=== PATIENT | male | born 1940 | race Caucasian/White ===

== ENCOUNTER 2017-12-12 13:08 | Observation (INO) | payer OTHER ==
[2017-12-12] MEDS ORDERED: NA CHLORIDE 0.9% 250 ML ONE (14:09)
[2017-12-12] MEDS ORDERED: ACETAMINOPHEN 500 MG TAB ONE (14:09)
[2017-12-12 14:33] LABS: Absolute Lymphocytes (CBC) 1.1 K/uL (0.7-4.9); Absolute Monocytes 1.4 K/uL (0.1-1.3); Absolute Neutrophil 11.3 K/uL (1.8-8.0); Basophils % 0.2 % (0-1.3); Hematocrit 44.4 % (39.6-49.0); Lymphocytes % 7.9 % (15.3-44.8); MCH 31.2 pg (27.0-35.0); MCV 93.3 fL (80-100); MPV 10.4 fL (7.6-11.3); Monocytes % 10.1 % (3.3-12.3); RBC Red Blood Cell Count 4.76 M/uL (4.33-5.43)
[2017-12-12 15:04] LABS: Albumin 2.9 g/dL (3.4-5.0); Bilirubin Direct 0.3 mg/dL (0-0.2); Bilirubin Total 1.3 mg/dL (0.2-1.0); Protein, Total 7.2 g/dL (6.4-8.2)
[2017-12-12] MEDS ORDERED: NA CHLORIDE 0.9% 1,000 ML ONE (15:31)
--- NOTE | 2017-12-12 17:05 | RAD REPORT ---
EXAM DESCRIPTION: CT - Abdomen Pelvis Wo Contrast - 12/12/2017 4:50 pm CLINICAL HISTORY: Abdominal pain. ABD PAIN COMPARISON: <Comparisons> TECHNIQUE: CT imaging of the abdomen and pelvis was performed without contrast. Solid organ, bowel a nd vascular assessment is limited due to lack of IV and oral contrast. All CT scans are performed using dose optimization technique as appropriate and may include automated exposure control or mA/KV adjustment according to patient size. FINDINGS: The lower lung perkins are clear. The liver demonstrates no focal mass or intrahepatic biliary dilatation. The spleen, adrenal glands a re normal. Mild to moderate left-sided hydronephrosis and hydroureter is present. Mild fat stranding surrounding the ureter and left renal pelvis is seen. No obstructing calculus is identified. No right -sided urinary tract stone or hydronephrosis.Several calcifications are seen in the tail of the pancr eas likely indicating mild chronic pancreatitis. No bowel obstruction, free air, free fluid or abscess. Small fat containing umbilical hernia. The antwon endix is normal. Mild fecal retention in the right side of the colon seen. Prominent lumbar degenerative changes.Mild lumbar levoscoliosis. IMPRESSION: Mild to moderate left-sided hydronephrosis and hydroureter is present without obstructin g stone identified. This may indicate recent passage of a stone or vesiculoureteral reflux. A limited non-contrast examination was performed as detailed.
[2017-12-12 17:56] LABS: Urine Blood 3+ (NEG); Urine Glucose NEGATIVE (NEG); Urine Protein 1+ (NEG); Urine Specific Gravity 1.025 (1.005-1.030); Urine pH 5.5 (5.0-7.0)
--- NOTE | 2017-12-12 17:59 | EDPHYS ---
Physician Documentation [facility] Name: Calvin Peralta Age: 77 yrs Sex: Male : 1940 Arrival Date: 12/12/2017 Time: 13:10 Bed 17 Private MD: Beka Vaughn ED Physician Venancio Meeks HPI: 12/12 13:28 This 77 yrs old Male presents to ER via Ambulatory with complaints of rh1 Constipation, Flank Pain, Pelvic Pain. 13:28 The patient presents with pelvic pain, flank pain. Onset: The symptoms/episode rh1 began/occurred 5 day(s) ago. The symptoms do not radiate. Associated signs and symptoms: Pertinent positives: constipation, fever, nausea, Pertinent negatives: chest pain, diarrhea, dysuria, palpitations, shortness of breath, testicular pain, vomiting. The symptoms are described as achy. Modifying factors: The symptoms are alleviated by nothing, the symptoms are aggravated by pressure. Severity of pain: At its worst the pain was moderate in the emergency department the pain is unchanged. The patient has not experienced similar symptoms in the past. The patient has not recently seen a physician. He has been unable to have a bowel movement for the past 5 days to 1 week. Approx. 5 days ago he began with bilateral flank pain, lower pelvic pain, and intermittent scrotal pain. The scrotal pain is described as pressure, and occurs most often with BM. He has some nausea yesterday, denies any emesis, and last night had chills. He feels the need to have a bowel movement, but is unable to go, and denies any significant pain with BM attempt. He does have some pain with sitting. Reports once approx. 2 weeks ago he was straining to have BM, and his testicles hurt and became swollen, that resolved after a couple of days, and is not ongoing at this time.. Historical: - Allergies: 13:22 PENICILLINS; aj - Home Meds: 15:20 tramadol 50 mg Oral tab 2 tabs as needed [Active]; [place] Thyroid 120 mg Oral tab em [Active]; metoprolol tartrate 25 mg Oral tab [Active]; lisinopril 20 mg Oral tab 1 tab once daily [Active]; clopidogrel 75 mg oral tab 1 tab once daily [Active]; triamterene-hydrochlorothiazid 75-50 mg Oral tab 1 tab once daily [Active]; Flomax 0.4 mg Oral cp24 [Active]; allopurinol 100 mg Oral tab 1 tab 4 times per day [Active]; - PMHx: 13:22 Hyperlipidemia; Hernia; Arthritis; Ulcers; aj - PSHx: 13:22 Heart stents; aj - Immunization history:: Adult Immunizations up to date. - Social history:: Smoking status: Patient/guardian denies using tobacco. - Ebola Screening: : Patient negative for fever greater than or equal to 101.5 degrees Fahrenheit, and additional compatible Ebola Virus Disease symptoms Patient denies exposure to infectious person Patient denies travel to an Ebola-affected area in the 21 days before illness onset No symptoms or risks identified at this time. ROS: 13:28 Constitutional: Positive for chills. rh1 13:28 Cardiovascular: Negative for chest pain, palpitations. 13:28 Respiratory: Negative for cough, shortness of breath, wheezing. 13:28 Abdomen/GI: Positive for abdominal pain, nausea, constipation, Negative for vomiting, diarrhea. 13:28 Back: Positive for flank pain, Negative for pain with movement. 13:28 : Positive for intermittent scrotal pain, Negative for urinary symptoms, small amounts, burning with urination, penile pain. 13:28 Skin: Negative for diaphoresis. 13:28 Neuro: Negative for dizziness, numbness, syncope, near syncope, tingling, weakness. Exam: 13:28 Constitutional: This is a well developed, well nourished patient who is awake, alert, rh1 and in no acute distress. Head/Face: Normocephalic, atraumatic. Neck: Trachea midline, and no cervical lymphadenopathy. Supple, full range of motion without nuchal rigidity. No Meningismus. Chest/axilla: Normal chest wall appearance and motion. Nontender with no deformity. No lesions are appreciated. Cardiovascular: Regular rate and rhythm with a normal S1 and S2. No gallops, murmurs, or rubs. No JVD. No pulse deficits. Respiratory: Lungs have equal breath sounds bilaterally, clear to auscultation. No rales, rhonchi or wheezes noted. No increased work of breathing. 13:28 Back: No spinal tenderness. No costovertebral tenderness. Full range of motion. 13:28 Skin: Warm, dry with normal turgor. Normal color with no rashes, no lesions, and no evidence of cellulitis. MS/ Extremity: Pulses equal, no cyanosis. Neurovascular intact. Full, normal range of motion. 13:28 Abdomen/GI: Inspection: 13:28 Back: Exam negative for ecchymosis 13:28 Neuro: Orientation: is normal, to person, place \T\ time. Mentation: is normal, lucid, able to follow commands, Motor: is normal, moves all fours, strength is 5/5 in all extremities, Sensation: is normal, no obvious gross deficits, numbness, is not appreciated, tingling, is not appreciated, Gait: is steady, at a normal pace, without difficulty. 13:28 Abdomen/GI: Inspection: abdomen appears normal, bruising, is not seen, distension, is rh1 not seen, Bowel sounds: normal, in all quadrants, active, all quadrants, Palpation: soft, in all quadrants, mild abdominal tenderness, in the umbilical area, suprapubic area, right lower quadrant and left lower quadrant, rebound tenderness, is not appreciated, involuntary guarding, is not appreciated, Rectal exam: Stool: no appreciable stool with ZAIDA, hemorrhoid(s), are not appreciated, mass, is not appreciated, tenderness, that is mild, at prostate, Indicators: McBurney's point is not tender, Vieira's sign is negative, Rovsing's sign is negative, Liver: no appreciated palpable abnormalities, Hernia: noted in the epigastric area, paraumbilical area and umbilical area, with umbilical hernia, non - tender, no overlying skin changes; with moderate sized ventral hernia, not overly tender. 13:28 : Male external genitalia: erythema, is absent, lesion, absent, swelling, is not rh1 appreciated, tenderness, is not appreciated, non - tender bilaterally, Rectal exam: Rectal tone: normal, Stool: minimal appreciable stool on exam, Prostate: mildly tender, firm, not boggy, hemorrhoid(s), are not appreciated, mass, is not appreciated. Vital Signs: 13:22 BP 138 / 77; Pulse 102; Resp 20; Temp 100.6; Pulse Ox 96% on R/A; Weight 115.67 kg; aj Height 5 ft. 11 in. (180.34 cm); 14:46 BP 101 / 59; Pulse 88; Resp 18; Pulse Ox 96% on R/A; Pain 0/10; em 15:25 BP 112 / 65; Pulse 86; Resp 16; Temp 100.2(O); Pulse Ox 97% on R/A; em 16:49 BP 101 / 54; Pulse 79; Resp 15; Pulse Ox 96% on R/A; em 17:00 Temp 98.5(O); dh3 18:13 BP 110 / 70; Pulse 79; Resp 18; Pulse Ox 96% on R/A; Pain 0/10; em 19:32 BP 113 / 64; Pulse 79; Resp 16; Temp 98.8; Pulse Ox 94% on R/A; ao 13:22 Body Mass Index 35.56 (115.67 kg, 180.34 cm) aj MDM: 13:28 Patient medically screened. rh1 17:53 Data reviewed: vital signs, nurses notes, lab test result(s), EKG, radiologic studies, rh1 CT scan, I have discussed the patient's presentation/case with the attending Emergency Department Physician; and as a result, I will admit patient. Data interpreted: Pulse oximetry: on room air is 96 %. Interpretation: normal. Counseling: I had a detailed discussion with the patient and/or guardian regarding: the historical points, exam findings, and any diagnostic results supporting the discharge/admit diagnosis, lab results, radiology results, the need for further work-up and treatment in the hospital. Physician consultation: Jeffrey Villegas DO was called at 17:53, was contacted at 17:53, regarding admission, consult, patient's condition, in the emergency department to see patient at 17:53. 12/12 14:01 Order name: Amylase, Serum; Complete Time: 15:10 12/12 14:01 Order name: Basic Metabolic Panel; Complete Time: 15:10 12/12 14:01 Order name: CBC with Diff; Complete Time: 14:38 12/12 14:01 Order name: Creatinine for Radiology; Complete Time: 14:53 12/12 14:01 Order name: Hepatic Function; Complete Time: 15:10 12/12 14:01 Order name: Lipase; Complete Time: 15:10 12/12 14:01 Order name: Urine Microscopic Only; Complete Time: 18:04 12/12 17:36 Order name: Lactate [facility] 12/12 17:36 Order name: Procalcitonin [facility] 12/12 17:36 Order name: Psa Screen [facility] 12/12 17:53 Order name: Urine Dipstick--Ancillary (enter results); Complete Time: 18:00 12/12 18:02 Order name: Urine Culture [facility] 12/12 14:01 Order name: IV Saline Lock; Complete Time: 14:35 [facility] 12/12 14:01 Order name: Labs collected and sent; Complete Time: 14:35 [facility] 12/12 14:01 Order name: Urine Dipstick-Ancillary (obtain specimen); Complete Time: 18:29 [facility] 12/12 14:01 Order name: NPO; Complete Time: 14:35 [facility] 12/12 14:02 Order name: EKG - Nurse/Tech; Complete Time: 14:44 [facility] 12/12 14:55 Order name: CT Abd/Pelvis - Without Cont; Complete Time: 17:12 [facility] 12/12 19:52 Order name: [facility] Administered Medications: 14:35 Drug: Tylenol 1000 mg Route: PO; em 18:29 Follow up: Response: No adverse reaction; Temperature is decreased em 14:35 Drug: NS 0.9% 250 ml Route: IV; Rate: bolus; Site: left antecubital; em 16:57 Follow up: IV Status: Completed infusion; IV Intake: 250ml em 15:33 Drug: NS 0.9% 1000 ml Route: IV; Rate: 75 ml/hr; Site: left antecubital; em 19:55 Follow up: IV Status: Infusion continued upon admission ao Disposition: 18:04 Chart complete. [facility] 18:39 Co-signature as Attending Physician, Venancio Meeks MD I agree with the assessment and kdr plan of care. Disposition: 12/12/17 17:58 Hospitalization ordered by Jeffrey Villegas for Observation. Preliminary diagnosis are hydronephrosis hydroureter, acute renal failure. - Bed requested for Telemetry/MedSurg (observation). - Status is Observation. ao - Condition is Stable. - Problem is new. - Symptoms have improved. UTI on Admission? Yes Signatures: Dispatcher [employer] EDSC Kim Marie RN RN aj Rittger, Kevin, MD MD kdr Munoz, Edgar, MANAGER OF TRANSPORTATION MANAGER OF TRANSPORTATION Faye Caballero, JOSE GLASSWARE MAKER rh1 Jose Valle, RN RN Margoth Brizuela Corrections: (The following items were deleted from the chart) 14:11 13:16 Stone Protocol+CT.RAD.BRZ ordered. [facility] EDMS 14:59 14:02 Abdomen Pelvis W Con+CT.RAD.BRZ ordered. [facility] EDSC 18:00 13:28 He has been unable to have a bowel movement for the past 1 week. Approx. 5 days rh1 ago he began with bilateral flank pain, pelvic pain, and intermittent scrotal pain. He has some nausea, denies any emesis, and last night had chills. He feels the need to have a bowel movement, but is unable to go. He does have some pain with sitting. Reports once approx. 2 weeks ago he was straining to have BM, and his testicles hurt and became swollen.. 1 18:03 13:28 Abdomen/GI: Inspection: abdomen appears normal, bruising, is not seen, rh1 distension, is not seen, Bowel sounds: normal, in all quadrants, active, all quadrants, Palpation: soft, in all quadrants, mild abdominal tenderness, in the umbilical area, suprapubic area, right lower quadrant and left lower quadrant, rebound tenderness, is not appreciated, involuntary guarding, is not appreciated, Rectal exam: Stool: no appreciable stool with ZAIDA, hemorrhoid(s), are not appreciated, mass, is not appreciated, tenderness, that is mild, at prostate, Indicators: McBurney's point is not tender, Vieira's sign is negative, Rovsing's sign is negative, Liver: no appreciated palpable abnormalities, Hernia: noted in the epigastric area, paraumbilical area and umbilical area, with umbilical hernia, non - tender, no overlying skin changes; with moderate sized ventral hernia, not overly tender, rh1 18:04 13:28 He has been unable to have a bowel movement for the past 1 week. Approx. 5 days rh1 ago he began with bilateral flank pain, lower pelvic pain, and intermittent scrotal pain. The scrotal pain is described as pressure, and occurs most often with BM. He has some nausea yesterday, denies any emesis, and last night had chills. He feels the need to have a bowel movement, but is unable to go, and denies any significant pain with BM attempt. He does have some pain with sitting. Reports once approx. 2 weeks ago he was straining to have BM, and his testicles hurt and became swollen, that resolved after a couple of days, and is not ongoing at this time.. rh1 18:04 17:58 Hospitalization Ordered by Jeffrey Villegas DO for Observation. Preliminary 1 diagnosis is hydronephrosis hydroureter; acute renal failure. Bed requested for Telemetry/MedSurg (observation). Status is Observation. Condition is Stable. Problem is new. Symptoms have improved. UTI on Admission? No. rh1 18:31 18:04 12/12/2017 17:58 Hospitalization Ordered by Jeffrey Villegas DO for Observation. eb Preliminary diagnosis is hydronephrosis hydroureter; acute renal failure. Bed requested for Telemetry/MedSurg (observation). Status is Observation. Condition is Stable. Problem is new. Symptoms have improved. UTI on Admission? Yes. 1 19:57 18:31 12/12/2017 17:58 Hospitalization Ordered by Jeffrey Villegas DO for Observation. ao Preliminary diagnosis is hydronephrosis hydroureter; acute renal failure. Bed requested for Telemetry/MedSurg (observation). Status is Observation. Condition is Stable. Problem is new. Symptoms have improved. UTI on Admission? Yes. eb
--- NOTE | 2017-12-12 17:59 | ER ---
Nurse's Notes [facility] Name: Calvin Peralta Age: 77 yrs Sex: Male : 1940 Arrival Date: 12/12/2017 Time: 13:10 Bed 17 Private MD: Beka Vaughn Diagnosis: hydronephrosis hydroureter;acute renal failure Presentation: 12/12 13:19 Presenting complaint: Patient states: Constipation, lower abdominal pain and rectal aj pain for 5 days. Reports pain in scrotum with straining for BM. Report trying multiple OTC laxatives. Transition of care: patient was not received from another setting of care. Onset of symptoms was December 07, 2017. Risk Assessment: Do you want to hurt yourself or someone else? Patient reports no desire to harm self or others. Initial Sepsis Screen: Does the patient meet any 2 criteria? Temp <36.0*C (96.8*F)) or > 38.3*C (100.4*F). HR > 90 bpm. Yes Does the patient have a suspected source of infection? No. Patient's initial sepsis screen is negative. Care prior to arrival: None. 13:19 Method Of Arrival: Ambulatory aj 13:19 Acuity: HOLGER 3 aj Triage Assessment: 13:22 General: Appears in no apparent distress. comfortable, Behavior is calm, cooperative, aj appropriate for age. Pain: Complains of pain in abdomen. Neuro: Level of Consciousness is awake, alert, obeys commands, Oriented to person, place, time, situation, Appropriate for age. GI: Abdomen is round Reports lower abdominal pain, upper abdominal pain, constipation. Derm: Skin is intact, is healthy with good turgor, Skin is pink, warm \T\ dry. normal. Historical: - Allergies: 13:22 PENICILLINS; aj - Home Meds: 15:20 tramadol 50 mg Oral tab 2 tabs as needed [Active]; [place] Thyroid 120 mg Oral tab em [Active]; metoprolol tartrate 25 mg Oral tab [Active]; lisinopril 20 mg Oral tab 1 tab once daily [Active]; clopidogrel 75 mg oral tab 1 tab once daily [Active]; triamterene-hydrochlorothiazid 75-50 mg Oral tab 1 tab once daily [Active]; Flomax 0.4 mg Oral cp24 [Active]; allopurinol 100 mg Oral tab 1 tab 4 times per day [Active]; - PMHx: 13:22 Hyperlipidemia; Hernia; Arthritis; Ulcers; aj - PSHx: 13:22 Heart stents; aj - Immunization history:: Adult Immunizations up to date. - Social history:: Smoking status: Patient/guardian denies using tobacco. - Ebola Screening: : Patient negative for fever greater than or equal to 101.5 degrees Fahrenheit, and additional compatible Ebola Virus Disease symptoms Patient denies exposure to infectious person Patient denies travel to an Ebola-affected area in the 21 days before illness onset No symptoms or risks identified at this time. Screenin:45 Abuse screen: Denies threats or abuse. Nutritional screening: No deficits noted. em Tuberculosis screening: No symptoms or risk factors identified. Fall Risk None identified. Assessment: 13:40 General: Appears in no apparent distress. comfortable, Behavior is calm, cooperative. em Pain: Denies pain. Neuro: Level of Consciousness is awake, alert, obeys commands, Oriented to person, place, time, situation. Cardiovascular: Capillary refill < 3 seconds Patient's skin is warm and dry. Respiratory: Airway is patent Respiratory effort is even, unlabored, Respiratory pattern is regular, symmetrical. GI: Abdomen is round obese, Bowel sounds present X 4 quads. Abd is soft X 4 quads Abdomen is tender to palpation in left upper quadrant and left lower quadrant Reports constipation, since . : No signs and/or symptoms were reported regarding the genitourinary system. EENT: No signs and/or symptoms were reported regarding the EENT system. Derm: Skin is intact, Skin is pink, warm \T\ dry. Musculoskeletal: Range of motion: intact in all extremities. 14:42 Reassessment: Patient appears in no apparent distress at this time. Patient and/or em family updated on plan of care and expected duration. Pain level reassessed. Patient is alert, oriented x 3, equal unlabored respirations, skin warm/dry/pink. Patient denies pain at this time. 15:43 Reassessment: Patient appears in no apparent distress at this time. Patient and/or em family updated on plan of care and expected duration. Pain level reassessed. Patient is alert, oriented x 3, equal unlabored respirations, skin warm/dry/pink. family at bedside Patient denies pain at this time. 16:00 Reassessment: Patient appears in no apparent distress at this time. I agree with above iw assessment by Rich Barbosa LVN. 16:35 Reassessment: Patient appears in no apparent distress at this time. Patient and/or em family updated on plan of care and expected duration. Pain level reassessed. Patient is alert, oriented x 3, equal unlabored respirations, skin warm/dry/pink. Patient denies pain at this time. 17:45 Reassessment: Patient appears in no apparent distress at this time. Patient and/or em family updated on plan of care and expected duration. Pain level reassessed. Patient is alert, oriented x 3, equal unlabored respirations, skin warm/dry/pink. Dr. Villegas at bedside discussing POC. 19:20 Reassessment: Ultrasound at bedside. ao Vital Signs: 13:22 BP 138 / 77; Pulse 102; Resp 20; Temp 100.6; Pulse Ox 96% on R/A; Weight 115.67 kg; aj Height 5 ft. 11 in. (180.34 cm); 14:46 BP 101 / 59; Pulse 88; Resp 18; Pulse Ox 96% on R/A; Pain 0/10; em 15:25 BP 112 / 65; Pulse 86; Resp 16; Temp 100.2(O); Pulse Ox 97% on R/A; em 16:49 BP 101 / 54; Pulse 79; Resp 15; Pulse Ox 96% on R/A; em 17:00 Temp 98.5(O); dh3 18:13 BP 110 / 70; Pulse 79; Resp 18; Pulse Ox 96% on R/A; Pain 0/10; em 19:32 BP 113 / 64; Pulse 79; Resp 16; Temp 98.8; Pulse Ox 94% on R/A; ao 13:22 Body Mass Index 35.56 (115.67 kg, 180.34 cm) aj ED Course: 13:10 Patient arrived in ED. as 13:10 Beka Vaughn is Private Physician. as 13:21 Triage completed. aj 13:22 Arm band placed on left wrist. Patient placed in an exam room. aj 13:25 [facility] rh1 13:25 Venancio Meeks MD is Attending Physician. rh1 13:31 Rich Barbosa LVN is Primary Nurse. em 14:27 Radiology exam delayed due to lab results not completed at this time. (BUN/Creatinine) kw1 IV insertion attempt and/or patient not having appropriate IV at this time. 14:45 Patient has correct armband on for positive identification. Placed in gown. Bed in low em position. Call light in reach. Adult w/ patient. 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 Initial lab(s) drawn, by me, sent to lab. em Inserted saline lock: 20 gauge in left antecubital area, using aseptic technique. Blood collected. 14:55 Radiology exam delayed due to lab results not completed at this time. (BUN/Creatinine). kw1 15:06 CT completed. Patient moved to CT. Patient moved back from CT. cw1 15:07 CT Abd/Pelvis - Without Cont In Process Unspecified. EDMS 17:56 Jeffrey Villegas DO is Hospitalizing Provider. 1 18:06 add on labs drawn by me and sent to lab. 3 19:56 Patient admitted, IV remains in place. ao Administered Medications: 14:35 Drug: Tylenol 1000 mg Route: PO; em 18:29 Follow up: Response: No adverse reaction; Temperature is decreased em 14:35 Drug: NS 0.9% 250 ml Route: IV; Rate: bolus; Site: left antecubital; em 16:57 Follow up: IV Status: Completed infusion; IV Intake: 250ml em 15:33 Drug: NS 0.9% 1000 ml Route: IV; Rate: 75 ml/hr; Site: left antecubital; em 19:55 Follow up: IV Status: Infusion continued upon admission ao Intake: 16:57 IV: 250ml; Total: 250ml. em Outcome: 17:58 Decision to Hospitalize by Provider. rh1 19:55 Admitted to Tele accompanied by tech, room 416, with chart, Other ALLISON Johnson Report ao called to ALLISON Johnson 19:55 Condition: stable 19:55 Instructed on the need for admit. 19:57 Patient left the ED. ao Signatures: Dispatcher [employer] Kim Deras RN RN aj Munoz, Edgar, [employer] DELIVERY AIDE em Hattie Servin as Natalie Sheth RN RN iw Woodley, Crystal 1 Faye Lawson, DIETITIAN CONSULTANT DIETITIAN CONSULTANT 1 Jose Valle, RN RN Nay Bruno 3 Romelia Medina kw1 Corrections: (The following items were deleted from the chart) 15:42 13:40 GI: Abdomen is round obese, Bowel sounds present X 4 quads. Abd is soft X 4 quads em Abdomen is tender to palpation in left upper quadrant and left lower quadrant em
[2017-12-12 18:01] LABS: Urine Bacteria 20-50 /HPF (NONE SEEN); Urine Culture Reflex Order REFLEXED; Urine Mucus 2+ /HPF (NONE SEEN); Urine RBC 20-50 /HPF (NONE SEEN)
[2017-12-12] MEDS ORDERED: ACETAMINOPHEN 500 MG TAB PO PRN (18:08)
[2017-12-12] MEDS ORDERED: ONDANSETRON 4 MG/2 ML VIAL IV PRN (18:08)
[2017-12-12] MEDS ORDERED: TRAMADOL HCL 50 MG TAB PO PRN (18:08)
[2017-12-12] MEDS ORDERED: HYDROCODONE/APAP 7.5/325 MG TAB PO PRN (18:08)
--- NOTE | 2017-12-12 18:21 | P.HP ---
Certification for Inpatient Patient admitted to: Inpatient With expected LOS: >2 Midnights Patient will require the following post-hospital care: None Practitioner: I am a practitioner with admitting privileges, knowledge of patient current condition, hospital course, and medical plan of care. Services: Services provided to patient in accordance with Admission requirements found in Title 42 Section 412.3 of the Code of Federal Regulations Patient History Date of Service: 12/12/17 Primary Care Provider: Dr. Vaughn; Cardiology-Dr. Thurman Reason for admission: Flank pain, constipation History of Present Illness: 77-year-old male presented emergency room with increasing flank pain to the left side, constipation and poor urinary output. Patient reports last month he start to have some incontinence. He was placed on Flomax at that time. Over the past 5 days he has been constipated. Over the last several days he has been noticing some left flank pain. He admits taking multiple medications for constipation including Ducolax, Senokot and fleets enema. Today he had a mild headache. Some fevers were noted. He reports some nocturnal incontinence. He came to the ER for further evaluation. Patient with history of hypertension, CAD, BPH, hyperlipidemia. In the ER he was evaluated. Initial blood pressure stable. White count elevated at 13.9, BUN of 31, creatinine 2.2 with a GFR 29. Urine showed positive for hematuria and UTI. CT scan of the abdomen and pelvis showed no calculus to either side of the urinary system. Hydronephrosis was noted to the left side. No obstruction to the abdomen or abscess noted. No free air noted. Due to the nature of the findings, patient was admitted for further evaluation and treatment. When I saw the patient ER, he appeared comfortable. He did not appear in any distress. Patient reports poor urinary output. He does not drink or smoke. Home medications list reviewed: Yes - Past Medical/Surgical History Diabetic: No -: CAD -: Hypertension -: Hyperlipidemia -: BPH -: Obesity -: Left knee surgery Psychosocial/ Personal History: Patient is a . He has 3 kids. - Family History Father -: Heart disease, Hypertension, Cancer (Lymphoma) Mother -: Lung disease - Social History Smoking Status: Never smoker Alcohol use: No CD- Drugs: No Caffeine use: Yes Place of Residence: Home Review of Systems General: Fever, Weakness, As per HPI Eyes: Unremarkable ENT: Unremarkable Respiratory: Unremarkable Cardiovascular: Light Headedness, As per HPI Gastrointestinal: Nausea, Constipation, As per HPI Genitourinary: Frequency, Urgency, Incontinence, As per HPI Musculoskeletal: Unremarkable Integumentary: Unremarkable Neurological: Unremarkable Lymphatics: Unremarkable Physical Examination - Physical Exam General: Alert, In no apparent distress, Oriented x3, Cooperative HEENT: Atraumatic, Normocephalic, PERRLA, Other (Dry mucous membranes) Neck: Supple Respiratory: Clear to auscultation bilaterally, Normal air movement Cardiovascular: Normal pulses, Regular rate/rhythm Gastrointestinal: Hypoactive (Throughout), Soft and benign, Non-distended, No masses, No rebound, No guarding, Other (Patient morbidly obese.), Tenderness ( Left flank tenderness) Musculoskeletal: No erythema, No tenderness, No warmth Integumentary: No tenderness/swelling, No erythema, No warmth, No cyanosis Neurological: Normal speech, Normal strength at 5/5 x4 extr, Normal tone, Normal affect - Studies Laboratory Data (last 24 hrs) 12/12/17 14:20: Creatinine 2.20 H 12/12/17 14:20: WBC 13.9 H, Hgb 14.9, Hct 44.4, Plt Count 124 L 12/12/17 14:20: Sodium 137, Potassium 4.0, BUN 31 H, Creatinine 2.20 H, Glucose 129 H, Total Bilirubin 1.3 H, AST 36, ALT 23, Alkaline Phosphatase 70, Amylase 23 L, Lipase 162 Assessment and Plan - Problems (Diagnosis) (1) Acute renal failure Current Visit: Yes Status: Acute Plan: Likely from pyelonephritis with noted hydronephrosis. Case discussed with nephrology. Will start IV antibiotic therapy. Continue IV fluids. Hydronephrosis appears that he may have passed a stone. Will monitor closely. Await urine and blood cultures. (2) Pyelonephritis Current Visit: Yes Status: Acute Plan: Patient with left-sided flank pain likely pyelonephritis. Continue as above. Rocephin started. Will obtain urine and blood cultures. (3) Hydronephrosis Current Visit: Yes Status: Acute Plan: Likely related to pyelonephritis and acute renal failure. Possible passage of stone recently. Continue as above. Qualifiers: Hydronephrosis type: other Qualified Code(s): N13.39 - Other hydronephrosis (4) Constipation Current Visit: Yes Status: Acute Plan: Recent constipation. May be related to pyelonephritis. Will consult GI to further evaluate. (5) Hypertension Current Visit: Yes Status: Chronic Plan: Will continue with medication. Will obtain home medication. Qualifiers: Hypertension type: essential hypertension Qualified Code(s): I10 - Essential (primary) hypertension (6) CAD (coronary artery disease) Current Visit: Yes Status: Chronic Plan: Will continue with aspirin. Will hold Plavix in the event that some intervention is required. (7) Obesity Current Visit: Yes Status: Chronic Plan: Will obtain BMI. (8) Hypothyroidism Current Visit: Yes Status: Chronic Plan: Will obtain medication. Will check tsh Discharge Plan: Home Plan to discharge in: Greater than 2 days - Advance Directives Does patient have a Living Will: No Does patient have a Durable POA for Healthcare: No - Code Status/Comfort Care Code Status Assessed: Yes Time Spent Managing Pts Care (In Minutes): 55
[2017-12-12] MEDS: NA CHLORIDE 0.9% 1,000 ML IV SCH (19:00)
--- NOTE | 2017-12-12 19:51 | RAD REPORT ---
EXAM DESCRIPTION: US - Renal Ultrasound-Complete - 12/12/2017 7:38 pm CLINICAL HISTORY: Pyelonephritis, ARF COMPARISON: Abdomen Pelvis Wo Contrast dated 12/12/2017 FINDINGS: Both kidneys are normal in size, shape and echotexture. The right kidney measures 11.1 x 6.1 x 5.4 cm. No hydronephrosis, focal mass or perinephric fluid. The left kidney measures 13.2 x 7.5 x 6.8 cm. Mild left hydronephrosis noted. The urinary bladder is incompletely distended without gross abnormality seen. IMPRESSION: Mild left hydronephrosis.
[2017-12-12] MEDS: ENOXAPARIN 30 MG/0.3 ML SQ SCH (22:18)
[2017-12-13] MEDS: NA CHLORIDE 0.9% 1,000 ML IV SCH ×2 (04:39→15:21)
[2017-12-13 05:16] LABS: Absolute Lymphocytes (CBC) 1.8 K/uL (0.7-4.9); Absolute Monocytes 1.1 K/uL (0.1-1.3); Absolute Neutrophil 6.6 K/uL (1.8-8.0); Basophils % 0.5 % (0-1.3); Eosinophils % 2.6 % (0-4.4); Hematocrit 40.3 % (39.6-49.0); Lymphocytes % 18.3 % (15.3-44.8); MCH 31.7 pg (27.0-35.0); MCV 93.9 fL (80-100); MPV 10.4 fL (7.6-11.3); Monocytes % 11.5 % (3.3-12.3); RBC Red Blood Cell Count 4.29 M/uL (4.33-5.43)
[2017-12-13 05:49] LABS: Potassium 4.1 mmol/L (3.5-5.1); Thyroid Stimulating Hormone 1.76 uIU/mL (0.36-3.74)
[2017-12-13] MEDS: METOPROLOL TAR 25 MG TAB PO SCH ×2 (05:57→18:00)
[2017-12-13] MEDS: PANTOPRAZOLE 40MG TABLET PO SCH (05:57)
[2017-12-13] MEDS ORDERED: HOME MED 1 EA UNK (Thyroid,Pork [Armour Thyroid] 90 MG) PO SCH (09:00)
[2017-12-13] MEDS ORDERED: CEFTRIAXONE 1 GM/NS 50 ML 1 GM/50 ML BAG IV SCH (09:00)
[2017-12-13] MEDS: ENOXAPARIN 30 MG/0.3 ML SQ SCH (09:28)
[2017-12-13] MEDS: TAMSULOSIN 0.4 MG SR CAP PO SCH (09:28)
[2017-12-13] MEDS: ALLOPURINOL 100 MG TAB PO SCH (09:28)
[2017-12-13] MEDS: CLOPIDOGREL 75 MG TABLET PO SCH (09:29)
--- NOTE | 2017-12-13 09:33 | EKG ---
Test Date: 2017-12-12 Test Time: 14:40:12 Orthotic And Prosthetic Technician: RAYA MEASUREMENT RESULTS: Intervals: Rate: 86 FL: 204 QRSD: 92 QT: 402 QTc: 481 [place]: P: 62 FL: 204 QRS: -53 T: 50 INTERPRETIVE STATEMENTS: Normal sinus rhythm Left axis deviation Inferior infarct, age undetermined Abnormal ECG No previous ECG available for comparison Electronically Signed On 12-13-17 09:32:08 CDT by Dany Reynoso
[2017-12-13] MEDS: CEFTRIAXONE/SWI 1gm 1 GM/10 ML SYR IVP SCH (10:36)
[2017-12-13] MEDS ORDERED: CEFTRIAXONE/SWI 1gm 1 GM/10 ML SYR IV SCH (11:00)
--- NOTE | 2017-12-13 13:35 | P.PN ---
Subjective Date of Service: 12/13/17 Primary Care Provider: Dr. Vaughn; Cardiology-Dr. Thurman Chief Complaint: Flank pain, constipation Subjective: Improving, Other (Patient had a bowel movement last night) Physical Examination - Vital Signs Temperature: 97.9 F Blood Pressure: 112/56 Pulse: 81 Respirations: 18 Pulse Ox (%): 97 - Physical Exam General: Alert, In no apparent distress, Oriented x3, Cooperative HEENT: Atraumatic Neck: Supple Respiratory: Clear to auscultation bilaterally, Normal air movement Cardiovascular: Normal pulses, Regular rate/rhythm Gastrointestinal: Normal bowel sounds, Soft and benign, Non-distended, No masses , No rebound, No guarding, Tenderness (Less pain to the left flank) Musculoskeletal: No erythema, No tenderness, No warmth Integumentary: No tenderness/swelling, No erythema, No warmth, No cyanosis Neurological: Normal speech, Normal strength at 5/5 x4 extr, Normal tone, Normal affect - Studies Laboratory Data (last 24 hrs) 12/12/17 14:20: Creatinine 2.20 H 12/12/17 14:20: WBC 13.9 H, Hgb 14.9, Hct 44.4, Plt Count 124 L 12/12/17 14:20: Sodium 137, Potassium 4.0, BUN 31 H, Creatinine 2.20 H, Glucose 129 H, Total Bilirubin 1.3 H, AST 36, ALT 23, Alkaline Phosphatase 70, Amylase 23 L, Lipase 162 Medications List Reviewed: Yes Assessment & Plan - Problems (Diagnosis) (1) Acute renal failure Current Visit: Yes Status: Acute Plan: Likely from pyelonephritis with noted hydronephrosis. Overall improved. Continue IV antibiotic therapy. Continue IV fluids. Renal function improved. Await blood and urine culture results. (2) Pyelonephritis Current Visit: Yes Status: Acute Plan: Patient with left-sided flank pain likely pyelonephritis. Continue as above. Rocephin started. Await urine and blood culture results. (3) Hydronephrosis Current Visit: Yes Status: Acute Plan: Likely related to pyelonephritis and acute renal failure. Possible passage of stone recently. Continue as above. Qualifiers: Hydronephrosis type: other Qualified Code(s): N13.39 - Other hydronephrosis (4) Constipation Current Visit: Yes Status: Acute Plan: Recent constipation. May be related to pyelonephritis. Overall improved. Patient did have a bowel movement yesterday. GI consulted to further address (5) Hypertension Current Visit: Yes Status: Chronic Plan: Will continue with medication. Will obtain home medication. Qualifiers: Hypertension type: essential hypertension Qualified Code(s): I10 - Essential (primary) hypertension (6) CAD (coronary artery disease) Current Visit: Yes Status: Chronic Plan: Will continue with aspirin. Will restart his Plavix (7) Obesity Current Visit: Yes Status: Chronic Plan: Will address lifestyle modification education Qualifiers: Obesity type: due to excess calories Obesity classification: adult class 2 (BMI 35 - 39.9) Serious obesity comorbidity presence: with serious comorbidity Body mass index: BMI 37.0-37.9 Qualified Code(s): E66.01 - Morbid (severe) obesity due to excess calories; Z68.37 - Body mass index (BMI) 37.0-37.9, adult (8) Hypothyroidism Current Visit: Yes Status: Chronic Plan: Will continue with home medication Qualifiers: Hypothyroidism type: unspecified Qualified Code(s): E03.9 - Hypothyroidism , unspecified Discharge Plan: Home Plan to discharge in: 48 Hours Time Spent Managing Pts Care (In Minutes): 55
--- NOTE | 2017-12-13 14:57 | CON ---
Date of Consultation: 12/12/2017 Reason For Consultation: Constipation. History Of Present Illness: The patient is a 77-year-old white male with history of hypertension, hyperlipidemia, coronary artery disease, obesity, and left knee surgery. The patient presented to hospital due to severe constipation. The patient states that he was unable to go for 5-7 days, took dulcolax and fleet enema, but still unable to go. Daughter said to go to the hospital and at the hospital, found to have pyelonephritis with elevated white count of 13, significantly abnormal urinalysis revealing bacteria, white blood cell count, blood in the urine. CT scan revealed hydronephrosis and hydroureter , but no stones seen as well. The patient denies any abdominal pain, fevers, chills, night sweats, nausea, vomiting, change in weight. Last colonoscopy was approximately 10 years ago, which was negative by his verbal report at [place]. No prior EGD. Past Medical History: Significant for hypertension, hyperlipidemia, coronary artery disease, benign prostatic hypertrophy, obesity, left knee surgery. Medications: Current medications in the hospital include Tylenol, [place], Allopurinol, Rocephin, Plavix, Lovenox, metoprolol, Zofran, Flomax, [place] Thyroid 90 p.o. daily, and Ultram. Allergies: TO PENICILLIN. Social History: He is a . No tobacco or alcohol. Has 3 children. The patient states his due to complications of severe constipation as well. Family History: Father of lymphoma. 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 Mother with history of asthma and COPD, tobacco user, O2 dependent in the last few years of her life. Father was a tobacco user as well. Review of Systems: The patient has severe constipation, left back and flank pain, but denies any melena, hematochezia, hematemesis, coffee-grounds emesis, hematuria, dysuria, polydipsia, chest pain, shortness of breath, seizure, syncope, and chest pain, numbness, tingling in lower extremity, paresthesias, muscle aches, joint aches. No abdominal pain, fevers, chills, night sweats, nausea, vomiting. No depression, anxiety. Physical Examination: Vital Signs: The patient's temperature is 97.6 degrees Fahrenheit, pulse 71, respirations 19, blood pressure 103/64, O2 saturation pulse ox. He is 5 feet 11 inches, 271 pounds. BMI of 37.8 kg/m2. General: He is obese male, lying in bed, in no acute distress, pain in the left flank and left back. HEENT: Normocephalic, atraumatic. Anicteric. Pupils equal, round, and reactive to light. Extraocular movements intact. Oropharynx is clear. Neck: Supple. No masses. Respirations: Clear to auscultation bilaterally. Cardiac: Regular rate and rhythm. Gastrointestinal: Positive bowel sounds. Soft, nontender. Extremities: No clubbing, cyanosis, or edema. 2+ pulses. Neuro: Alert and oriented x3. Grossly nonfocal. 5/5 motor strength. Sensation intact to light touch. He did have some left CVA tenderness on back exam. Laboratory Data: The patient had a white count yesterday of 13.9, down to 9.9 today, hemoglobin of 13.6, hematocrit of 40.3, MCV of 94, platelet count of 112 , polys of 67%, lymphocytes 18%, monocytes 12%, eosinophils 3%. The patient has sodium of 139, potassium of 4.1, chloride 105, bicarb 28, BUN of 37, creatinine of 1.6 down from 2.2 yesterday on admission, glucose 112, lactic acid of 1.7 with calcium 8.3, magnesium 2.0, total bilirubin 1.3, direct bilirubin 0.3, AST of 36, ALT of 23, alkaline phosphatase 70, total protein 7.2 , albumin 2.9, globulin 4.3, amylase 23, lipase 160 normal. PSA 1.34. TSH of 1.76, free T4 of 0.96, normal. Urinalysis was remarkable for 3+ blood, 20-50 rbc's, trace leukocyte esterase, 20-50 white blood cells, less than 5 squamous epithelial cells, 20-50 bacteria, 3+ mucus, 1+ protein. CT abdomen and pelvis revealed [id number] left-sided hydronephrosis and hydroureter present without obstructing stone fat-stranding surrounding the ureter and left renal pelvis is seen. Left renal ultrasound revealed mild left hydronephrosis. Impression: 1. Change in bowel habits, constipation, no bowel movement for the 5-7 days, feeling better now MiraLAX therapy. The patient states he feels better and has no abdominal pain, nausea, vomiting, fevers, chills, night sweats. Last colonoscopy 10+ years ago and was negative colonoscopy as outpatient after pyelonephritis has been effectively treated. 2. Pyelonephritis and acute renal failure, creatinine up to 2.2 on admission, now down to 1.[address] scan revealing left hydronephrosis with hydroureter and left flank pain consistent with pyelonephritis. 3. Acute renal failure as per above. 4. Hypertension. 5. Coronary artery disease. 6. Obesity. 7. Hypothyroidism. Recommendations: 1. Miralax 2. Fiber supplements and Colace bid 3. IVFs and IV antibiotics 4. outpatient colonoscopy in 3-4 weeks MARLON Voice ID: [id number] Report ID: [id number] CRISTIAN
[2017-12-14] MEDS: NA CHLORIDE 0.9% 1,000 ML IV SCH ×2 (00:12→11:00)
[2017-12-14 00:47] VITALS: O2SAT 96
--- NOTE | 2017-12-14 04:07 | CON ---
Date of Consultation: 12/13/2017 Chief Complaint: Acute kidney injury. History Of Present Illness: Acute kidney injury, moderately severe, associated with hypovolemia and obstructive uropathy with hydronephrosis. On arrival to the hospital, the patient was found to have BUN of 31, creatinine of 2.20. The patient was started on IV fluids for hypovolemia. Renal function has not improved significantly over the last 24 hours. The patient denies history of chronic kidney disease. Denies history of kidney stones. A CT scan of the abdomen and pelvis per stone protocol showed [id number] left-sided hydronephrosis was present as well as hydroureter was present without obstructing stone. This may indicate recent passage of the stone of vesicoureteral reflux. Renal ultrasound demonstrated left hydronephrosis, the right kidney 11.1 cm in length, left kidney 13.2 cm in length. The patient presented to the hospital because of abdominal discomfort. He denied flank pain and denies renal colic. Over last several days, he was complaining of constipation and despite oral laxatives, he did not have a bowel movement. Constipation was not resolving and he decided to come to the hospital. He was using Dulcolax, Seonokot, and Fleets enema at home without any improvement of symptoms. He was complaining of some abdominal discomfort. He has history of diabetes mellitus, hypertension, coronary artery disease, BPH , hyperlipidemia, although he denies history of stone. Urinalysis showed possible UTI with hematuria. CT scan did not visualize kidney stone, although it showed left-sided hydronephrosis. Review of Systems: Denies fever, chills. Eyes: Denies vision changes. Ears, Nose, Mouth, and Throat: Denies sore throat, earache. Respiratory: Denies PND, orthopnea. Cardiovascular: Denies chest pain, palpitation. GI: Denies nausea, vomiting, was complaining of constipation. Denies melena, hematemesis. : Denies dysuria. Denies gross hematuria. Musculoskeletal: Denies muscle aches or joint swelling. All other systems reviewed and all are negative. Past Medical History: Hypertensive heart and kidney disease, coronary artery disease, hyperlipidemia, BPH, obesity, left knee surgery, heart disease, hypertension, cancer, and lymphoma, mother lung disease. Social History: Denies tobacco, alcohol, or illicit drugs. Physical Examination: General: The patient is awake, alert, follows commands. Eyes: Anicteric sclerae. EOMI. Ears, Nose, Mouth, and Throat: Oral mucosa moist. No pallor. Neck: Supple. No JVD. No bruits. Lungs: Clear to auscultation bilaterally. Heart: S1, S2. No pericardial friction rub. GI: Normal bowel sounds. No rebound. No guarding. Musculoskeletal: No joint swelling. No muscle tenderness. Extremities: No clubbing. No cyanosis. Neurological: Moving extremities. Cranial nerves intact. Psychiatric: Alert, oriented, follows commands, normal affect. Lab Work: Creatinine 2.2, WBC 13.1, hemoglobin 14.9, hematocrit 44.4, platelet count 124,000. Sodium 137, potassium 4.0, BUN 31, creatinine 2.2, glucose 129, total bilirubin 1.3, AST 36, ALT 23, lipase 162, amylase 23. Impression And Plan: Acute kidney injury, moderately severe, associated with hydronephrosis, prerenal azotemia. Continue IV fluids with normal saline. Monitor electrolytes closely. The patient has hydronephrosis. Workup is pending and nuclear medicine scan is ordered for hydronephrosis with Lasix. Possible kidney stone and the patient was found to have microscopic hematuria as well as proteinuria and leukocyturia. Microbiology test is pending. Urine culture is pending. Blood culture showed no growth. Continue broad-spectrum antibiotics for urinary tract infection with complicated UTI and possible urosepsis. 1. Hypertension. Avoid KYLE inhibitor due to the fact that the patient has acute kidney injury. 2. History of hyperuricemia. Continue allopurinol. Monitor uric acid level. 3. Hypotension/hypovolemia. Continue IV fluids with normal saline. Monitor magnesium and potassium level. 4. Benign prostatic hypertrophy. The patient denies lower urinary tract symptoms. The patient will continue Flomax. EB/MODL Voice ID: [id number] Report ID: [id number] MTDBull
[2017-12-14] MEDS ORDERED: FUROSEMIDE 40 MG/4 ML VIAL ONE (05:13)
[2017-12-14 05:28] LABS: Absolute Lymphocytes (CBC) 1.8 K/uL (0.7-4.9); Absolute Monocytes 0.7 K/uL (0.1-1.3); Absolute Neutrophil 3.8 K/uL (1.8-8.0); Basophils % 0.7 % (0-1.3); Eosinophils % 6.5 % (0-4.4); Hematocrit 39.5 % (39.6-49.0); Lymphocytes % 26.7 % (15.3-44.8); MCV 93.7 fL (80-100); MPV 10.6 fL (7.6-11.3); Monocytes % 9.8 % (3.3-12.3); RBC Red Blood Cell Count 4.22 M/uL (4.33-5.43)
[2017-12-14 05:39] LABS: Magnesium 1.9 mg/dL (1.8-2.4); Potassium 3.6 mmol/L (3.5-5.1)
[2017-12-14] MEDS: METOPROLOL TAR 25 MG TAB PO SCH (06:00)
[2017-12-14] MEDS ORDERED: THYROID 30 MG TAB PO SCH (06:00)
[2017-12-14] MEDS: PANTOPRAZOLE 40MG TABLET PO SCH (06:30)
[2017-12-14] MEDS ORDERED: POTASSIUM CL SA 10 MEQ TAB PO ONE (06:46)
[2017-12-14 07:20] VITALS: BMI 38.4
[2017-12-14] MEDS: CLOPIDOGREL 75 MG TABLET PO SCH (09:02)
[2017-12-14] MEDS: TAMSULOSIN 0.4 MG SR CAP PO SCH (09:02)
[2017-12-14] MEDS: ALLOPURINOL 100 MG TAB PO SCH (09:02)
[2017-12-14] MEDS: ENOXAPARIN 30 MG/0.3 ML SQ SCH (09:03)
[2017-12-14] MEDS: CEFTRIAXONE/SWI 1gm 1 GM/10 ML SYR IVP SCH (09:03)
--- NOTE | 2017-12-14 10:11 | P.PN ---
Subjective Date of Service: 12/14/17 Primary Care Provider: Dr. Vaughn; Cardiology-Dr. Thurman Chief Complaint: Flank pain, constipation Subjective: Improving Physical Examination - Vital Signs Temperature: 98.5 F Blood Pressure: 133/77 Pulse: 61 Respirations: 20 Pulse Ox (%): 98 - Physical Exam General: Alert, In no apparent distress, Oriented x3, Cooperative HEENT: Atraumatic Neck: Supple Respiratory: Clear to auscultation bilaterally, Normal air movement Cardiovascular: Normal pulses, Regular rate/rhythm Gastrointestinal: Normal bowel sounds, Soft and benign, Non-distended, No masses , No rebound, No guarding, Tenderness (Less tenderness to the left flank) Musculoskeletal: No erythema, No tenderness, No warmth Integumentary: No tenderness/swelling, No erythema, No warmth, No cyanosis Neurological: Normal speech, Normal strength at 5/5 x4 extr, Normal tone, Normal affect - Studies Medications List Reviewed: Yes Assessment & Plan - Problems (Diagnosis) (1) Acute renal failure Onset Date: 12/14/17 Current Visit: Yes Status: Acute Plan: Likely from pyelonephritis with noted hydronephrosis. This has significantly improved. Await urine culture results. Anticipate discharge today if okay with nephrology. Await urine culture results to finalize. (2) Pyelonephritis Onset Date: 12/14/17 Current Visit: Yes Status: Acute Plan: Patient with left-sided flank pain likely pyelonephritis. Continue as above. Anticipate discharge today if urine culture finalizes and if okay with nephrology. (3) Hydronephrosis Onset Date: 12/14/17 Current Visit: Yes Status: Acute Plan: Likely related to pyelonephritis and acute renal failure. Possible passage of stone recently. Continue as above. Qualifiers: Hydronephrosis type: other Qualified Code(s): N13.39 - Other hydronephrosis (4) Constipation Onset Date: 12/14/17 Current Visit: Yes Status: Acute Plan: Recent constipation. May be related to pyelonephritis. Overall improved. Patient did have a bowel movement yesterday. GI recommends MiraLax as needed (5) Hypertension Onset Date: 12/14/17 Current Visit: Yes Status: Chronic Plan: Will continue with medication. Qualifiers: Hypertension type: essential hypertension Qualified Code(s): I10 - Essential (primary) hypertension (6) CAD (coronary artery disease) Onset Date: 12/14/17 Current Visit: Yes Status: Chronic Plan: Will continue with aspirin and Plavix (7) Obesity Onset Date: 12/14/17 Current Visit: Yes Status: Chronic Plan: Will address lifestyle modification education Qualifiers: Obesity type: due to excess calories Obesity classification: adult class 2 (BMI 35 - 39.9) Serious obesity comorbidity presence: with serious comorbidity Body mass index: BMI 37.0-37.9 Qualified Code(s): E66.01 - Morbid (severe) obesity due to excess calories; Z68.37 - Body mass index (BMI) 37.0-37.9, adult (8) Hypothyroidism Onset Date: 12/14/17 Current Visit: Yes Status: Chronic Plan: Will continue with home medication Qualifiers: Hypothyroidism type: unspecified Qualified Code(s): E03.9 - Hypothyroidism , unspecified Discharge Plan: Home Plan to discharge in: 24 Hours Time Spent Managing Pts Care (In Minutes): 55
--- NOTE | 2017-12-14 10:23 | RAD REPORT ---
EXAM DESCRIPTION: NM - Kidney Imag W/Flow F W - 12/14/2017 7:58 am CLINICAL HISTORY: Left-sided hydronephrosis COMPARISON: Renal ultrasound December 12, CT abdomen December 12 TECHNIQUE: Patient was administered 10.3 millicuries technetium 99 M Mag 3. Dynamic flow imaging was performed. Lasix 40 milligrams was administered 10 minutes after radiopharmaceutical injection. Time activity curves were generated. FINDINGS: The dynamic flow imaging shows prominence of each renal pelvis with the left-sided hydrone phrosis seen on imaging less evident on this examination. Time to peak activity of the right kidney w as 9.07 minutes with the left kidney peak activity is 6.63 minutes. Split function was calculated as 46% on the left and 54% on the right. Both kidneys showed a relative delay in time to peak activity v ersus a normal kidney. Both kidneys showed progressive diminished activity after peak value. This was not significantly affected by Lasix administration. IMPRESSION: Both kidneys demonstrate a delay in time to peak activity but maintain relatively symmet hsaron split function. No significant or measurable response to the Lasix seen in the suspected obstructed left kidney. The left-sided dilatation seen on CT imaging is less apparent on the nuclear medicine imaging. Signif icant obstruction is not suspected.
[2017-12-14 12:52] VITALS: BP 127/75; TEMP 98.3
--- NOTE | 2017-12-14 14:29 | P.DS ---
Admission Date: 12/12/17 Discharge Date: 12/14/17 Primary Care Provider: Dr. Vaughn; Cardiology-Dr. Thurman Disposition: ROUTINE DISCHARGE Discharge Condition: GOOD Reason for Admission: Flank pain, constipation Consultations: Nephrology-Dr. Eisenberg GI-Dr. Valdivia Procedures: CT scan: FINDINGS: The lower lung perkins are clear. The liver demonstrates no focal mass or intrahepatic biliary dilatation. The spleen, adrenal glands are normal. Mild to moderate left-sided hydronephrosis and hydroureter is present. Mild fat stranding surrounding the ureter and left renal pelvis is seen. No obstructing calculus is identified. No right-sided urinary tract stone or hydronephrosis.Several calcifications are seen in the tail of the pancreas likely indicating mild chronic pancreatitis. No bowel obstruction, free air, free fluid or abscess. Small fat containing umbilical hernia. The appendix is normal. Mild fecal retention in the right side of the colon seen. Prominent lumbar degenerative changes.Mild lumbar levoscoliosis. IMPRESSION: Mild to moderate left-sided hydronephrosis and hydroureter is present without obstructing stone identified. This may indicate recent passage of a stone or vesiculoureteral reflux. Renal ultrasound: FINDINGS: Both kidneys are normal in size, shape and echotexture. The right kidney measures 11.1 x 6.1 x 5.4 cm. No hydronephrosis, focal mass or perinephric fluid. The left kidney measures 13.2 x 7.5 x 6.8 cm. Mild left hydronephrosis noted. The urinary bladder is incompletely distended without gross abnormality seen. IMPRESSION: Mild left hydronephrosis. Renal scan: FINDINGS: The dynamic flow imaging shows prominence of each renal pelvis with the left-sided hydronephrosis seen on imaging less evident on this examination. Time to peak activity of the right kidney was 9.07 minutes with the left kidney peak activity is 6.63 minutes. Split function was calculated as 46% on the left and 54% on the right. Both kidneys showed a relative delay in time to peak activity versus a normal kidney. Both kidneys showed progressive diminished activity after peak value. This was not significantly affected by Lasix administration. IMPRESSION: Both kidneys demonstrate a delay in time to peak activity but maintain relatively symmetric split function. No significant or measurable response to the Lasix seen in the suspected obstructed left kidney. The left-sided dilatation seen on CT imaging is less apparent on the nuclear medicine imaging. Significant obstruction is not suspected. - Problems (1) Acute renal failure Onset Date: 12/14/17 Current Visit: Yes Status: Acute (2) Pyelonephritis Onset Date: 12/14/17 Current Visit: Yes Status: Acute (3) Hydronephrosis Onset Date: 12/14/17 Current Visit: Yes Status: Acute Qualifiers: Hydronephrosis type: other Qualified Code(s): N13.39 - Other hydronephrosis (4) Constipation Onset Date: 12/14/17 Current Visit: Yes Status: Acute (5) Hypertension Onset Date: 12/14/17 Current Visit: Yes Status: Chronic Qualifiers: Hypertension type: essential hypertension Qualified Code(s): I10 - Essential (primary) hypertension (6) CAD (coronary artery disease) Onset Date: 12/14/17 Current Visit: Yes Status: Chronic Qualifiers: Coronary Disease-Associated Artery/Lesion type: unspecified vessel or lesion type (7) Obesity Onset Date: 12/14/17 Current Visit: Yes Status: Chronic Qualifiers: Obesity type: due to excess calories Obesity classification: adult class 2 (BMI 35 - 39.9) Serious obesity comorbidity presence: with serious comorbidity Body mass index: BMI 37.0-37.9 Qualified Code(s): E66.01 - Morbid (severe) obesity due to excess calories; Z68.37 - Body mass index (BMI) 37.0-37.9, adult (8) Hypothyroidism Onset Date: 12/14/17 Current Visit: Yes Status: Chronic Qualifiers: Hypothyroidism type: unspecified Qualified Code(s): E03.9 - Hypothyroidism , unspecified (9) Nephrolithiasis Current Visit: Yes Status: Acute (10) BPH (benign prostatic hyperplasia) Current Visit: Yes Status: Suspected Qualifiers: Lower urinary tract symptom presence: unspecified whether lower urinary tract symptoms present Qualified Code(s): N40.0 - Benign prostatic hyperplasia without lower urinary tract symptoms Brief History of Present Illness: 77-year-old male presented emergency room with increasing flank pain to the left side, constipation and poor urinary output. Patient reports last month he start to have some incontinence. He was placed on Flomax at that time. Over the past 5 days he has been constipated. Over the last several days he has been noticing some left flank pain. He admits taking multiple medications for constipation including Ducolax, Senokot and fleets enema. Today he had a mild headache. Some fevers were noted. He reports some nocturnal incontinence. He came to the ER for further evaluation. Patient with history of hypertension, CAD, BPH, hyperlipidemia. In the ER he was evaluated. Initial blood pressure stable. White count elevated at 13.9, BUN of 31, creatinine 2.2 with a GFR 29. Urine showed positive for hematuria and UTI. CT scan of the abdomen and pelvis showed no calculus to either side of the urinary system. Hydronephrosis was noted to the left side. No obstruction to the abdomen or abscess noted. No free air noted. Due to the nature of the findings, patient was admitted for further evaluation and treatment. When I saw the patient ER, he appeared comfortable. He did not appear in any distress. Patient reports poor urinary output. He does not drink or smoke. Hospital Course: The patient did well in the course of his stay. Patient was found to have left pyelonephritis secondary to recent passage of stone. Patient was evaluated by nephrology due to acute renal failure. Patient received IV fluids and antibiotic therapy-Rocephin during his stay. His renal function improved. Patient was without any significant abdominal pain. Urine culture was positive for Staph coagulase negative. Likely a contaminant. Repeat renal ultrasound showed hydronephrosis but no significant abnormality noted. A renal scan was done showing no obstruction. At discharge patient will continue with Ceftin 250 mg twice daily for 10 days. Recommendation is to recheck lab-BMP in 1 week to monitor his progress. Recommendation is for the patient follow up with nephrology in 1 week to monitor and follow up this hospitalization. Patient may require Urology evaluation as an outpatient. This can be further assessed by nephrology. Patient also had constipation. This was likely related to the recent infection. GI was consulted. Patient at discharge will continue with MiraLax as needed for constipation. Recommendation is for the patient follow up with GI in 2-4 weeks. Recommendation is for a colonoscopy in 4-6 weeks. Patient has hypertension. Medications were adjusted due to the acute renal failure. Lisinopril has been discontinued. Patient will continue with medication-metoprolol 25 mg daily. Recommendation is to maintain blood pressures less 150/80. Further adjustment can be done by his PCP. Patient has a history of gout. Patient continue with his medication allopurinol 400 mg daily. Further adjustment in medication can be done by nephrology. Patient has hypothyroidism. Patient will continue with Hinton thyroid 90 mg daily. Patient has CAD. Patient will continue with Plavix 75 mg daily. Patient may have BPH. Patient will continue with Flomax 0.4 mg daily. Recommendations for the patient follow up with urology as an outpatient to further evaluate. Vital Signs/Physical Exam: Temp Pulse Resp BP Pulse Ox 98.3 F 69 20 127/75 98 12/14/17 12:00 12/14/17 12:00 12/14/17 12:00 12/14/17 12:00 12/14/17 12:00 General: Alert, In no apparent distress, Oriented x3, Cooperative HEENT: Atraumatic Neck: Supple Respiratory: Clear to auscultation bilaterally, Normal air movement Cardiovascular: Normal pulses, Regular rate/rhythm Gastrointestinal: Normal bowel sounds, Soft and benign, Non-distended, No tenderness, No masses, No rebound, No guarding Musculoskeletal: No contractures, No erythema, No tenderness, No warmth Integumentary: No tenderness/swelling, No erythema, No warmth, No cyanosis Neurological: Normal speech, Normal strength at 5/5 x4 extr, Normal tone, Normal affect Laboratory Data at Discharge: WBC 6.7 K/uL (4.3-10.9) D 12/14/17 04:50 Hgb 13.5 g/dL (13.6-17.9) L 12/14/17 04:50 Hct 39.5 % (39.6-49.0) L 12/14/17 04:50 Plt Count 128 K/uL (152-406) L 12/14/17 04:50 Sodium 141 mmol/L (136-145) 12/14/17 04:50 Potassium 3.6 mmol/L (3.5-5.1) 12/14/17 04:50 BUN 30 mg/dL (7-18) H 12/14/17 04:50 Creatinine 1.30 mg/dL (0.55-1.3) 12/14/17 04:50 Glucose 104 mg/dL (74-106) 12/14/17 04:50 Magnesium 1.9 mg/dL (1.8-2.4) 12/14/17 04:50 Total Bilirubin 1.3 mg/dL (0.2-1.0) H 12/12/17 14:20 AST 36 U/L (15-37) 12/12/17 14:20 ALT 23 U/L (12-78) 12/12/17 14:20 Alkaline Phosphatase 70 U/L (45-117) 12/12/17 14:20 Amylase 23 U/L (25-115) L 12/12/17 14:20 Lipase 162 U/L (73-393) 12/12/17 14:20 Home Medications: Allopurinol 400 mg PO DAILY 12/12/17 Clopidogrel Bisulfate [Plavix*] 75 mg PO DAILY 12/12/17 Metoprolol Tartrate 25 mg PO DAILY 12/12/17 Tamsulosin HCl 0.4 mg PO DAILY 12/12/17 Thyroid,Pork [Hinton Thyroid] 90 mg PO DAILY 12/12/17 traMADol HCL [Ultram*] 50 mg PO Q6H PRN 12/12/17 Cefuroxime [Ceftin] 250 mg PO BID #20 tab 12/14/17 New Medications: Cefuroxime [Ceftin] 250 mg PO BID #20 tab Patient Discharge Instructions: 1. Patient will need to follow up his PCP in 1 week to follow up this hospitalization. 2. Patient was found to have left pyelonephritis secondary to recent passage of stone. Patient was evaluated by nephrology due to acute renal failure. Patient received IV antibiotic therapy and IV fluids. At discharge she is without any significant abdominal pain, urinary pain or fever. Urine culture was positive for Staph coagulase negative. Likely a contaminant. A renal scan was done showing no obstruction. At discharge patient will continue with Ceftin 250 mg twice daily for 10 days. Recommendation is to recheck lab-BMP in 1 week to monitor his progress. Recommendation is for the patient follow up with nephrology in 1 week to monitor and follow up this hospitalization. Patient may require Urology evaluation as an outpatient. This can be further assessed by nephrology. 3. Patient also had constipation. This was likely related to the recent infection. GI was consulted. Patient at discharge will continue with MiraLax as needed for constipation. Recommendation is for the patient follow up with GI in 2-4 weeks. Recommendation is for a colonoscopy in 4-6 weeks. 4. Patient has hypertension. Medications were adjusted due to the acute renal failure. Lisinopril and Dyazide has been discontinued. Patient will continue with medication-metoprolol 25 mg daily. Recommendation is to maintain blood pressures less 150/80. Further adjustment can be done by his PCP. If patient has increase edema then Lasix may be required. This can be further addressed by his PCP. 5. Patient has a history of gout. Patient continue with his medication allopurinol 400 mg daily. Further adjustment in medication can be done by nephrology. 6. Patient has hypothyroidism. Patient will continue with Hinton thyroid 90 mg daily. 7. Patient has CAD. Patient will continue with Plavix 75 mg daily. 8. Patient may have BPH. Patient will continue with Flomax 0.4 mg daily. Recommendations for the patient follow up with urology as an outpatient to further evaluate. Diet: GI soft Activity: Ad connie Time spent managing pt's care (in minutes): 55
--- NOTE | 2017-12-15 02:41 | PN ---
Date of Progress Note: 12/13/2017 Chief Complaint: Acute kidney injury. History Of Present Illness: Acute kidney injury, moderately severe, associated with hypovolemia and hydronephrosis. The patient was found to have left-sided hydronephrosis. Nuclear medicine Lexiscan was done and does not appear to be obstructive uropathy at this point. Creatinine level was 2.2, BUN 31. Regional ultrasound showed right kidney 11.1 and left kidney 13.2. Review of Systems: Denies fever or chills. Physical Examination: Lungs: Clear to auscultation bilaterally. Heart: S1, S2. Abdomen: Soft, benign. Extremities: No edema. Vital Signs: Blood pressure 127/75, heart rate 69, respiratory rate 20, temperature 98.3. Laboratory Data: Hemoglobin 13.5, WBC 6.7, and platelet count 128,000. Sodium 141, potassium 3.6, c hloride 107, CO2 of 28, BUN 30, creatinine 1.30, glucose 104, calcium 8.1, magnesium 1.9. Microbiolo gy test is pending. Blood culture negative. Impression And Plan: 1.Acute kidney injury, secondary to renal hypoperfusion. The patient responded to IV fluids. 2.Hydronephrosis. The patient will follow up with Urology. Nuclear scan did not confirm obstructiv e uropathy. 3.Continue antibiotics for urinary tract infection. 4.Hypertension. Blood pressure controlled. KYLE inhibitor on hold because of acute kidney injury. 5.Hypotension, hypovolemia. The patient completed IV fluids with normal saline. 6.Benign prostatic hypertrophy. Continue Flomax. Follow up with Urology and Nephrology. MALENA/IVELISSE Voice ID: [id number] Report ID: [id number]
== END 2017-12-14 16:01 | disposition home or self-care (01) ==
LOC: ER 13:08 → ERHOLD 18:12 → 4TH 19:42
PROVIDERS: ADMIT Family Medicine; ATTEND Family Medicine
DX: N17.9 Acute kidney failure, unspecified (principal); N13.6 Pyonephrosis; K59.00 Constipation, unspecified; I10 Essential (primary) hypertension; M10.9 Gout, unspecified; E03.9 Hypothyroidism, unspecified; E66.01 Morbid (severe) obesity due to excess calories; Z68.37 Body mass index [BMI] 37.0-37.9, adult; Z79.02 Long term (current) use of antithrombotics/antiplatelets; N40.0 Benign prostatic hyperplasia without lower urinary tract symptoms; E78.5 Hyperlipidemia, unspecified; I25.10 Atherosclerotic heart disease of native coronary artery without angina pectoris; Z95.5 Presence of coronary angioplasty implant and graft
CPT/HCPCS: 36415 ×2; 74176; 76770; 78708; 80048 ×3; 80076; 82150; 82962; 83605; 83690; 83735 ×2; 84145; 84439; 84443; 85025 ×3; 87040; 87077; 87086; 87088; 87186; 93005; 94660; 94760 ×2; 96360; 96361 ×2; 99285; A9562; G0103; G0378 ×2; J0696 ×2; J1650 ×3; J7030 ×4; 81003; 81015; 96365; 96366

== ENCOUNTER 2017-12-25 21:37 | Emergency (ER) | payer OTHER ==
[2017-12-25] MEDS ORDERED: FUROSEMIDE 40 MG/4 ML VIAL ONE (22:30)
[2017-12-25 22:36] LABS: Arterial Blood Carboxyhemoglob 1.4 % (0-1.5); Blood Gas Oxyhemoglobin 90.9 % (94-97); Blood O2 Saturation 92.9 % (92-98.5)
[2017-12-25 22:37] LABS: Absolute Lymphocytes (CBC) 1.7 K/uL (0.7-4.9); Absolute Monocytes 0.6 K/uL (0.1-1.3); Absolute Neutrophil 3.8 K/uL (1.8-8.0); Eosinophils % 5.3 % (0-4.4); Hematocrit 40.6 % (39.6-49.0); Lymphocytes % 26.1 % (15.3-44.8); MCH 31.4 pg (27.0-35.0); MPV 11.1 fL (7.6-11.3); Monocytes % 9.2 % (3.3-12.3); RBC Red Blood Cell Count 4.36 M/uL (4.33-5.43)
[2017-12-25 22:42] LABS: Protime INR 1.04
[2017-12-25 23:01] LABS: Albumin 2.8 g/dL (3.4-5.0); Bilirubin Direct 0.2 mg/dL (0-0.2); Bilirubin Total 0.6 mg/dL (0.2-1.0); CKMB Creatine Kinase MB 1.8 ng/mL (0.3-3.6); Magnesium 1.9 mg/dL (1.8-2.4); Potassium 3.7 mmol/L (3.5-5.1); Protein, Total 6.6 g/dL (6.4-8.2)
--- NOTE | 2017-12-25 23:18 | EDPHYS ---
Physician Documentation [facility] Name: Calvin Peralta Age: 77 yrs Sex: Male : 1940 Arrival Date: 12/25/2017 Time: 21:41 Bed 18 Private MD: ED Physician Christian Tanner HPI: 12/25 22:22 This 77 yrs old Male presents to ER via Ambulatory with complaints of pkl Swelling of Lower Extremity, Shortness Of Breath, Possible Overdose. 22:22 The patient has shortness of breath at rest. Onset: The symptoms/episode began/occurred pkl 2 day(s) ago. Associated signs and symptoms: Pertinent positives: swelling abdomen and both legs. The patient has been recently been admitted at [facility]. Historical: - Allergies: 22:03 PENICILLINS; bb 22:03 Morphine; bb - Home Meds: 22:03 allopurinol 100 mg Oral tab 1 tab 4 times per day [Active]; Berwind Thyroid 90 mg oral bb tab daily [Active]; clopidogrel 75 mg Oral tab 1 tab once daily [Active]; Flomax 0.4 mg Oral cp24 [Active]; metoprolol tartrate 25 mg Oral tab 1 tab once daily [Active]; losartan potassium 50 mg daily [Active]; aspirin 81 mg Oral chew 1 tab once daily [Active]; - PMHx: 22:03 Arthritis; Hernia; Hyperlipidemia; Ulcers; Hypertension; Sleep Apnea; bb - PSHx: 22:03 Heart stents; bb - Immunization history:: Adult Immunizations up to date. - Ebola Screening: : No symptoms or risks identified at this time. - Social history:: Smoking status: Patient/guardian denies using tobacco. ROS: 22:23 Eyes: Negative for injury, pain, redness, and discharge, ENT: Negative for injury, pkl pain, and discharge, Neck: Negative for injury, pain, and swelling, Cardiovascular: Negative for chest pain, palpitations, and edema. 22:23 Respiratory: Positive for shortness of breath, at rest. 22:23 Abdomen/GI: Positive for swelling of abdomen. 22:23 Back: Negative for acute changes. 22:23 : Negative for urinary symptoms. 22:23 MS/extremity: Positive for swelling, of the both legs. 22:23 Skin: Negative for rash. 22:23 Neuro: Negative for altered mental status. Exam: 22:23 Head/Face: Normocephalic, atraumatic. Eyes: Pupils equal round and reactive to light, pkl extra-ocular motions intact. Lids and lashes normal. Conjunctiva and sclera are non-icteric and not injected. Cornea within normal limits. Periorbital areas with no swelling, redness, or edema. ENT: Nares patent. No nasal discharge, no septal abnormalities noted. Tympanic membranes are normal and external auditory canals are clear. Oropharynx with no redness, swelling, or masses, exudates, or evidence of obstruction, uvula midline. Mucous membranes moist. Neck: Trachea midline, no thyromegaly or masses palpated, and no cervical lymphadenopathy. Supple, full range of motion without nuchal rigidity, or vertebral point tenderness. No Meningismus. Chest/axilla: Normal chest wall appearance and motion. Nontender with no deformity. No lesions are appreciated. Cardiovascular: Regular rate and rhythm with a normal S1 and S2. No gallops, murmurs, or rubs. Normal PMI, no JVD. No pulse deficits. Respiratory: Lungs have equal breath sounds bilaterally, clear to auscultation and percussion. No rales, rhonchi or wheezes noted. No increased work of breathing, no retractions or nasal flaring. Abdomen/GI: Soft, non-tender, with normal bowel sounds. No distension or tympany. No guarding or rebound. No evidence of tenderness throughout. Back: No spinal tenderness. No costovertebral tenderness. Full range of motion. Skin: Warm, dry with normal turgor. Normal color with no rashes, no lesions, and no evidence of cellulitis. Neuro: Awake and alert, GCS 15, oriented to person, place, time, and situation. Cranial nerves II-XII grossly intact. Motor strength 5/5 in all extremities. Sensory grossly intact. Cerebellar exam normal. Normal gait. 22:23 Musculoskeletal/extremity: Extremities: grossly normal except: noted in the both legs: swelling. Vital Signs: 22:03 BP 116 / 76; Pulse 82; Resp 18 S; Temp 99.6(O); Pulse Ox 96% on R/A; Weight 115.67 kg bb (R); Height 5 ft. 11 in. (180.34 cm) (R); Pain 0/10; 23:05 BP 126 / 74; Pulse 80; Resp 18; Temp 99.0(O); Pulse Ox 100% on R/A; Pain 0/10; bs1 22:03 Body Mass Index 35.56 (115.67 kg, 180.34 cm) bb MDM: 21:44 Patient medically screened. pkl 23:16 Data reviewed: vital signs, nurses notes, lab test result(s), EKG, radiologic studies, pkl plain films. 12/25 22:18 Order name: Basic Metabolic Panel; Complete Time: 23:10 pkl 12/25 22:18 Order name: CBC with Diff; Complete Time: 22:42 pkl 12/25 22:18 Order name: Ckmb; Complete Time: 23:10 pkl 12/25 22:18 Order name: CPK; Complete Time: 23:10 pkl 12/25 22:18 Order name: LFT's; Complete Time: 23:10 pkl 12/25 22:18 Order name: Magnesium; Complete Time: 23:10 pkl 12/25 22:18 Order name: NT PRO-BNP; Complete Time: 23:10 pkl 12/25 22:18 Order name: PT-INR; Complete Time: 23:10 pkl 12/25 22:18 Order name: Ptt, Activated; Complete Time: 23:10 pkl 12/25 22:18 Order name: Troponin (emerg Dept Use Only); Complete Time: 23:10 pkl 12/25 22:18 Order name: XRAY Chest (1 view) pkl 12/25 22:19 Order name: ABG; Complete Time: 23:10 pkl 12/25 23:15 Order name: Urine Dipstick--Ancillary (enter results) ms 12/25 22:18 Order name: EKG; Complete Time: 22:19 pkl 12/25 22:18 Order name: Cardiac monitoring; Complete Time: 22:53 pkl 12/25 22:18 Order name: EKG - Nurse/Tech; Complete Time: 22:40 pkl 12/25 22:18 Order name: IV Saline Lock; Complete Time: 22:19 pkl 12/25 22:18 Order name: Labs collected and sent; Complete Time: 22:40 pkl 12/25 22:18 Order name: O2 Per Protocol; Complete Time: 22:19 pkl 12/25 22:18 Order name: O2 Sat Monitoring; Complete Time: 22:20 pkl 12/25 22:18 Order name: Urine Dipstick-Ancillary (obtain specimen); Complete Time: 22:54 pkl Administered Medications: 22:28 Drug: Lasix 40 mg Route: IVP; Site: right antecubital; bs1 22:53 Follow up: Response: No adverse reaction bs1 Point of Care Testing: Blood Glucose: 22:34 Blood Glucose: 103 mg/dL; bs1 Ranges: Critical Glucose Levels:Adult <50 mg/dl or >400 mg/dl <40 mg/dl or >180 mg/dl Disposition: 12/25/17 23:18 Discharged to Home. Impression: Pedal edema both legs. - Condition is Stable. - Medication Reconciliation Form, Thank You Letter, Antibiotic Education, Prescription Opioid Use form. - Follow up: Private Physician; When: 2 - 3 days; Reason: Re-evaluation by your physician. - Problem is new. - Symptoms have improved. Signatures: Dispatcher [employer] EDChristian Reyna MD MD pkl Fanny Barrera, RN RN bb Phuong Whyte RN RN bs1 Corrections: (The following items were deleted from the chart) 23:40 23:18 12/25/2017 23:18 Discharged to Home. Impression: Pedal edema both legs. Condition bs1 is Stable. Forms are Medication Reconciliation Form, Thank You Letter, Antibiotic Education, Prescription Opioid Use. Follow up: Private Physician; When: 2 - 3 days; Reason: Re-evaluation by your physician. Problem is new. Symptoms have improved. pkl
--- NOTE | 2017-12-25 23:18 | ER ---
Nurse's Notes [facility] Name: Calvin Peralta Age: 77 yrs Sex: Male : 1940 Arrival Date: 12/25/2017 Time: 21:41 Bed 18 Private MD: Diagnosis: Pedal edema both legs Presentation: 12/25 21:57 Presenting complaint: pt 's daughter states pt was recently in the hospital and had his bb medications changed but he has been taking double the dose of losartan-potassium pt has been c/o SOB and has general swelling pt states his abdomen was so swollen he had a hard time bending over to put his shoes on. Transition of care: patient was not received from another setting of care. Onset of symptoms is unknown. Risk Assessment: Do you want to hurt yourself or someone else? Patient reports no desire to harm self or others. Initial Sepsis Screen: Does the patient meet any 2 criteria? No. Patient's initial sepsis screen is negative. Does the patient have a suspected source of infection? No. Patient's initial sepsis screen is negative. Care prior to arrival: None. 21:57 Method Of Arrival: Ambulatory 21:57 Acuity: HOLGER 3 bb Triage Assessment: 22:15 General: Appears in no apparent distress. comfortable. Respiratory: Onset: The bs1 symptoms/episode began/occurred gradually, the patient has mild shortness of breath. Historical: - Allergies: 22:03 PENICILLINS; bb 22:03 Morphine; bb - Home Meds: 22:03 allopurinol 100 mg Oral tab 1 tab 4 times per day [Active]; [place] Thyroid 90 mg oral bb tab daily [Active]; clopidogrel 75 mg Oral tab 1 tab once daily [Active]; Flomax 0.4 mg Oral cp24 [Active]; metoprolol tartrate 25 mg Oral tab 1 tab once daily [Active]; losartan potassium 50 mg daily [Active]; aspirin 81 mg Oral chew 1 tab once daily [Active]; - PMHx: 22:03 Arthritis; Hernia; Hyperlipidemia; Ulcers; Hypertension; Sleep Apnea; bb - PSHx: 22:03 Heart stents; bb - Immunization history:: Adult Immunizations up to date. - Ebola Screening: : No symptoms or risks identified at this time. - Social history:: Smoking status: Patient/guardian denies using tobacco. Screenin:32 Abuse screen: Denies threats or abuse. Denies injuries from another. Nutritional bs1 screening: No deficits noted. Tuberculosis screening: No symptoms or risk factors identified. Fall Risk None identified. Assessment: 22:00 General: Appears in no apparent distress. comfortable, Behavior is calm, cooperative, bs1 appropriate for age. Pain: Denies pain. Neuro: Level of Consciousness is awake, alert, obeys commands, Oriented to person, place, time, situation, Appropriate for age Speech is normal, Facial symmetry appears normal, Pupils are PERRLA. Cardiovascular: Denies chest pain, Heart tones S1 S2 present Capillary refill < 3 seconds Patient's skin is warm and dry. Cardiovascular: Rhythm is regular. Respiratory: Reports shortness of breath at rest on exertion Airway is patent Trachea midline Respiratory effort is even, unlabored, Respiratory pattern is regular, symmetrical, Breath sounds are clear bilaterally. GI: No signs and/or symptoms were reported involving the gastrointestinal system. : Reports inability to void. EENT: No signs and/or symptoms were reported regarding the EENT system. Derm: Skin is intact. Musculoskeletal: Circulation, motion, and sensation intact. Capillary refill < 3 seconds, Range of motion: intact in all extremities. 23:30 Reassessment: Patient appears in no apparent distress at this time. Patient and/or bs1 family updated on plan of care and expected duration. Pain level reassessed. Patient is alert, oriented x 3, equal unlabored respirations, skin warm/dry/pink. Patient/family state understanding of discharge instructions/POC Patient states feeling better. Patient states symptoms have improved. Vital Signs: 22:03 BP 116 / 76; Pulse 82; Resp 18 S; Temp 99.6(O); Pulse Ox 96% on R/A; Weight 115.67 kg bb (R); Height 5 ft. 11 in. (180.34 cm) (R); Pain 0/10; 23:05 BP 126 / 74; Pulse 80; Resp 18; Temp 99.0(O); Pulse Ox 100% on R/A; Pain 0/10; bs1 22:03 Body Mass Index 35.56 (115.67 kg, 180.34 cm) bb ED Course: 21:41 Patient arrived in ED. es 21:44 Chrsitian Tanner MD is Attending Physician. pkl 21:48 Whyte, Phuong, RN is Primary Nurse. bs1 22:00 Triage completed. bb 22:00 Inserted saline lock: 22 gauge in right antecubital area, using aseptic technique. bs1 Blood collected. by me, flushed with 10cc NS, patient tolerated. 22:03 Arm band placed on Patient placed in an exam room, on a stretcher, on pulse oximetry. bb 22:15 Patient has correct armband on for positive identification. Bed in low position. Call bs1 light in reach. Side rails up X 1. piano stringer on. Pulse ox on. NIBP on. 22:42 XRAY Chest (1 view) In Process Unspecified. EDMS 23:36 No provider procedures requiring assistance completed. IV discontinued, bleeding bs1 controlled, No redness/swelling at site. Pressure dressing applied. Administered Medications: 22:28 Drug: Lasix 40 mg Route: IVP; Site: right antecubital; bs1 22:53 Follow up: Response: No adverse reaction bs1 Point of Care Testing: Blood Glucose: 22:34 Blood Glucose: 103 mg/dL; bs1 Ranges: Intake: 23:39 PO: 0ml; IV: 20ml; Total: 20ml. bs1 Output: 23:39 Urine: 950ml (Voided); Total: 950ml. bs1 Outcome: 23:18 Discharge ordered by . pkl 23:36 Discharged to home ambulatory, with family. bs1 23:36 Condition: stable 23:36 Discharge instructions given to patient, Instructed on discharge instructions, follow up and referral plans. Demonstrated understanding of instructions, follow-up care. 23:40 Patient left the ED. bs1 Signatures: Dispatcher [employer] Christian Mac MD MD pkl Salyer, Edna es Ballard, Brenda RN RN Phuong Gibbons, RN RN bs1 Corrections: (The following items were deleted from the chart) 23:39 23:15 PO 0, IV 20, Intake Total 20; Urine 500, (Voided), Output Total 500. bs1 bs1
[2017-12-25 23:46] VITALS: BP 126/74; TEMP 99; O2SAT 100
[2017-12-25 23:49] LABS: Urine Blood TRACE (NEG); Urine Glucose NEGATIVE (NEG); Urine Protein NEGATIVE (NEG)
--- NOTE | 2017-12-26 10:15 | EKG ---
Test Date: 2017-12-25 Test Time: 22:36:20 Four[place]inier Tender: CARLINE MEASUREMENT RESULTS: Intervals: Rate: 73 NV: 220 QRSD: 94 QT: 448 QTc: 493 [place]: P: 65 NV: 220 QRS: -43 T: 12 INTERPRETIVE STATEMENTS: Sinus rhythm with 1st degree AV block Left axis deviation Low voltage QRS Cannot rule out Anterior infarct, age undetermined Abnormal ECG Compared to ECG 12/12/2017 14:40:12 First degree AV block now present Low QRS voltage now present Myocardial infarct finding still present Electronically Signed On 12-26-17 10:14:57 CDT by Dany Reynoso
--- NOTE | 2017-12-26 11:30 | RAD REPORT ---
EXAM DESCRIPTION: RAD - Chest Single View - 12/25/2017 10:44 pm CLINICAL HISTORY: DYSPNEA Chest pain. COMPARISON: None FINDINGS: Portable technique limits examination quality. Mild to moderate bilateral pulmonary opacities are noted likely representing pulmonary edema. The hea rt is moderately enlarged in size. No displaced fractures. IMPRESSION: Mild to moderate CHF versus volume overload pattern.
== END 2017-12-25 23:40 | disposition home or self-care (01) ==
LOC: ER 21:37
DX: R60.9 Edema, unspecified (principal); I10 Essential (primary) hypertension; E78.5 Hyperlipidemia, unspecified; Z95.818 Presence of other cardiac implants and grafts; Z79.82 Long term (current) use of aspirin; Z88.0 Allergy status to penicillin; Z88.5 Allergy status to narcotic agent
CPT/HCPCS: 36415; 71045; 80048; 80076; 81003; 82550; 82553; 82805; 82962; 83735; 83880; 84484; 85025; 85610; 85730; 93005; 96374; 99284

== ENCOUNTER 2019-11-20 15:02 | Inpatient (IN) | payer OTHER ==
--- OUTSIDE RECORDS SUMMARY | 2019-11-20 15:04 | XMS REPORT | Summary of Care ---
:1940 Author Organization [facility] - Health Address [address] [place] [id number] Care Team Providers Name Role Phone Beka Vaughn MD Primary Care Provider Encounter Details Date Type Department Care Team Description 10/02/2019 Orders Only [facility] Doctor Unassigned, No [address] [facility] [place] [address] [address] [place] [address] Allergies Active Allergy Reactions Severity Noted Date Comments Penicillins Unknown - See comments 03/25/2017 documented as of this encounter (statuses as of 11/14/2019) Medications Medication Sig Dispensed Refills Start Date End Date Status levothyroxine 137 mcg Take 137 mcg by 0 Active tablet mouth every morning. metoprolol succinate XL Take 25 mg by 0 Active 25 mg 24 hr tablet mouth daily. traMADOL 50 mg tablet Take 50 mg by 0 Active mouth every 6 (six) hours as needed. clopidogrel 75 mg tablet Take 75 mg by 0 Active mouth daily. furosemide 40 mg Take 1 tablet by 30 tablet 0 08/11/2019 Active tabletIndications: mouth daily. Altered mental status, unspecified altered mental status type, Cough documented as of this encounter (statuses as of 11/14/2019) Active Problems Problem Noted Date Pulmonary edema 08/09/2019 documented as of this encounter (statuses as of 11/14/2019) Social History Tobacco Use Types Packs/Day Years Used Date Never Smoker Smokeless Tobacco: Never Used Alcohol Use Drinks/Week oz/Week Comments No Sex Assigned at Date Recorded Not on file Job Start Date Occupation Industry Not on file Not on file Not on file Travel History Travel Start Travel End No recent travel history available. documented as of this encounter Last Filed Vital Signs Not on filedocumented in this encounter Plan of Treatment Health Maintenance Due Date Last Done Comments DTaP,Tdap,and Td Vaccines (1 - Tdap) 01/09/1951 Depression Screening 1952 Zoster Recombinant Vaccine (SHINGRIX) (1 of 2) 01/09/1990 Medicare Wellness Visit 01/09/2005 PNEUMOCOCCAL VACCINES 65+ (1 of 2 - PCV13) 01/09/2005 INFLUENZA VACCINE (Season Ended) 2020 documented as of this encounter Implants Implanted Type Area Nut Grinder Device Shelf Model / Serial Identifier Expiration / Lot Date Lens LENS Right: Sunny 08/15/2021 [id number] / Implanted: Qty: 1 on 03/26/2017 by Brayan White MD at [facility] 5 [id number] / [id number] Iol LENS Left: Eye Sunny 02/14/2022 [id number] / Implanted: Qty: 1 on 04/30/2017 by Brayan White MD at [facility] 1 [id number] / [id number] 10 documented as of this encounter Procedures Procedure Name Priority Date/Time Associated Diagnosis Comme nts AUTHORIZATION FOR RELEASE Routine 10/02/2019 12:01 AM OF PHI CDT documented in this encounter Results Not on filedocumented in this encounter Insurance Payer Benefit Plan / Subscriber ID Effective Dates Phone Addre ss Type Group MEDICARE MEDICARE PART xxxxxxxxxxx 2004-Fabiana [phone] Medicare A & B t [address] [id number] [place] [id number] AETNA AETNA O [id number] 2016-Fabiana O GENERIC t documented as of this encounter
--- OUTSIDE RECORDS SUMMARY | 2019-11-20 15:04 | XMS REPORT | Continuity of Care Document ---
:1940 Author Organization [facility] t Address [address] [place] [address] Care Team Providers Name Role Phone Doctor Unassigned, Name Attending Clinician Unavailable Unknown Attending Clinician Unavailable Bobbi PARKER Attending Clinician Brii COOPER M Attending Clinician Марина BLANDON S Attending Clinician Bobbi PARKER Admitting Clinician Problems This patient has no known problems. Allergies, Adverse Reactions, Alerts This patient has no known allergies or adverse reactions. Medications This patient has no known medications. Procedures This patient has no known procedures. Encounters Start End Encounter Admission Attending Care Care Encounter Source Date/Time Date/Time Type Type Clinicians Facility Department ID 2019-10-02 2019-10-02 Orders Doctor KO[facility] [id number] 00:00:00 00:00:00 Only UnassignedSUZETTE [id number] [place] [facility] [id number] 2019-08-15 2019-08-15 Telephone Unknown, [facility] [id number] 00:00:00 00:00:00 Attending TRI [id number] [place] [id number] [place] [id number] AND [facility] 2019-08-12 2019-08-[address] [facility] [id number] 00:00:00 00:00:00 Jacklyn Goetz [id number] [place] [id number] [place] [id number] 2019-08-12 2019-08-12 Transition Noble Teresa [id number] 00:00:00 00:00:00 of Care Renata Aguero [id number] [place] [id number] 2019-08-09 2019-08-11 Emergency Gina Parish [facility] [id number] 18:34:12 13:30:00 Jacklyn [place] [id number] [place] [id number] [place] [id number] Results This patient has no known results.
[2019-11-20 16:05] LABS: Basophils % 0.4 % (0-1.3); Hematocrit 44.2 % (39.6-49.0); Lymphocytes % 15.9 % (15.3-44.8); MPV 11.3 fL (7.6-11.3); RBC Red Blood Cell Count 4.67 M/uL (4.33-5.43)
[2019-11-20 16:08] LABS: Protime INR 2.09
[2019-11-20] MEDS ORDERED: NA CHLORIDE 0.9% 500 ML ONE (16:21)
[2019-11-20 16:23] LABS: Albumin 3.3 g/dL (3.4-5.0); Bilirubin Direct 0.8 mg/dL (0-0.2); Bilirubin Total 2.1 mg/dL (0.2-1.0); Magnesium 2.3 mg/dL (1.8-2.4); Protein, Total 7.5 g/dL (6.4-8.2); Troponin (Emerg Dept Use Only) 0.13 ng/mL (0.0-0.045)
[2019-11-20 16:29] LABS: CKMB Creatine Kinase MB 5.5 ng/mL (0.3-3.6)
--- NOTE | 2019-11-20 17:17 | RAD REPORT ---
EXAM DESCRIPTION: CT - Head Brain Wo Cont - 11/20/2019 3:59 pm CLINICAL HISTORY: CONFUSED, transient alteration of awareness COMPARISON: <Comparisons> TECHNIQUE: Axial 5 mm thick images of the head were obtained without IV contrast. All CT scans are performed using dose optimization technique as appropriate and may include automated exposure control or mA/KV adjustment according to patient size. FINDINGS: No intracranial hemorrhage, mass, edema or shift of mid-line structures. No acute infarcti on changes seen. No cortical edema or sulcal effacement. Patient has advanced for age atrophy and chr onic ischemic change. Ventricles are in proportion to the volume loss. Arterial tree calcifications a re present. Mastoid air cells and visualized portions of the paranasal sinuses are clear. No acute bony findings. IMPRESSION: Advanced atrophy and chronic ischemic change. No acute intracranial finding identified.
--- NOTE | 2019-11-20 17:18 | RAD REPORT ---
EXAM DESCRIPTION: RAD - Chest Single View - 11/20/2019 4:37 pm CLINICAL HISTORY: DYSPNEA COMPARISON: Two view chest September 26 TECHNIQUE: AP portable chest image was obtained 11/20/2019 4:37 pm . FINDINGS: Right base infiltrate and/ or atelectasis is present. Pleural effusion is evident. Right h emidiaphragm is elevated. Left lung field is clear. Cardiomegaly is present along with vascular engor gement. No pneumothorax. No acute bony abnormality seen. No acute aortic findings suspected. IMPRESSION: Right base infiltrate and/ or atelectasis accentuated by right hemidiaphragm elevation. Right base pleural effusion evident.
--- NOTE | 2019-11-20 17:25 | ER ---
Nurse's Notes [facility] Name: Calvin Peralta Age: 79 yrs Sex: Male : 1940 Arrival Date: 11/20/2019 Time: 15:04 Bed 20 Private MD: Abdon Salas K Diagnosis: Dyspnea;Pleural effusion, not elsewhere classified;Elevated troponin;Altered mental status, unspecified Presentation: 11/19 15:15 Chief complaint: Patient states: dyspnea and decreased appetite. Pt refuses to answer sv any other questions. Coronavirus screen: Surgical mask placed on patient. Patient moved to private room, placed in contact and droplet isolation with eye protection until further assessment. Patient denies a cough. Patient reports shortness of breath or difficulty breathing. Patient denies measured and/or subjective temperature greater than 100.4F prior to today's visit. Patient denies travel on a cruise ship or to a country the [facility] currently lists as an affected area. Patient denies contact with known and/or suspected case of COVID-19. Ebola Screen: No symptoms or risks identified at this time. Initial Sepsis Screen: Does the patient meet any 2 criteria? RR > 20 per min. HR > 90 bpm. Yes Does the patient have a suspected source of infection? Yes: Other: AMS. Risk Assessment: Do you want to hurt yourself or someone else? Patient reports no desire to harm self or others. Onset of symptoms is unknown. 15:15 Method Of Arrival: Wheelchair sv 15:15 Acuity: HOLGER 2 sv 15:27 Chief complaint: Patient's son or daughter states: SOB x 2-3 days, decreased appetite x sv 3 days, intermittent AMS. Pt lives alone. (-) COVID last week. Triage Assessment: 19:06 Respiratory: the patient has moderate shortness of breath. Historical: - Allergies: 15:31 Morphine; sv 15:31 PENICILLINS; sv - PMHx: 15:31 Arthritis; Hernia; Hyperlipidemia; Hypertension; Sleep Apnea; Ulcers; Asbestosis; sv - PSHx: 15:31 Heart stents; sv - Immunization history:: Adult Immunizations up to date. - Social history:: Smoking status: . Screenin:37 Abuse screen: Denies threats or abuse. Nutritional screening: No deficits noted. Tuberculosis screening: No symptoms or risk factors identified. Fall Risk None identified. Assessment: 15:27 Reassessment: Code Sepsis called. sv 15:45 General: Appears uncomfortable, Behavior is calm, appropriate for age. Neuro: Level of ah Consciousness is awake, alert, obeys commands, Oriented to person, place, time, situation. Cardiovascular: Capillary refill < 3 seconds Patient's skin is warm and dry. Pulses are palpable in right radial artery and left radial artery Rhythm is. Respiratory: Airway is patent Respiratory effort is even, labored, Respiratory pattern is symmetrical, tachypnea. EENT: Oral mucosa is dry. Pt states that he has thrush. Derm: Skin is intact, Skin is dry. 16:36 Reassessment: Notified provider of BNP and asked if bolus should be stopped. She said to continue the 500ml bolus. 16:40 Reassessment: Received critical value from lab, Lactate 4.8. Notified JOSE Serrano. 18:01 Reassessment: Pt returned from CT via stretcher. 18:15 Reassessment: hospitalist in to see patient. 19:00 Reassessment: Patient appears in no apparent distress at this time. Patient and/or vc family updated on plan of care and expected duration. Pain level reassessed. 20:00 Reassessment: Patient appears in no apparent distress at this time. Patient and/or vc family updated on plan of care and expected duration. Pain level reassessed. 21:00 Reassessment: Patient appears in no apparent distress at this time. Patient and/or vc family updated on plan of care and expected duration. Pain level reassessed. 21:00 Reassessment: See [facility] for further documentation. vc 11/20 07:00 Reassessment: RECD REPORT FROM JAMISON COOPER. PT IS ER HOLD, SEE [facility] FOR FURTHER bp DOCUMENTATION. 07:55 Reassessment: REPORT TO ZELALEM COOPER FOR RM 228. 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 Pain: Denies pain. Respiratory: Airway is patent Respiratory effort is even, Respiratory pattern is Breath sounds are coarse bilaterally. Vital Signs: 11/19 15:15 BP 147 / 110; Pulse 94; Resp 34; Temp 97.9; Pulse Ox 94% on R/A; sv 15:30 BP 130 / 86; Pulse 80; Resp 30; Pulse Ox 97% ; sv 16:30 BP 137 / 76; Pulse 75; Resp 26; Pulse Ox 98% ; sv 17:01 BP 133 / 93; Pulse 74; Resp 23; Pulse Ox 98% ; sv 17:30 BP 129 / 78; Pulse 80; Resp 25; Pulse Ox 94% on 2 lpm NC; ah 19:02 BP 131 / 81; Pulse 75; Resp 22; Pulse Ox 98% ; ah ED Course: 15:04 Patient arrived in ED. mr 15:04 Abdon Salas MD is Private Physician. mr 15:08 [facility]C [facility] kb 15:08 Sandy Evans MD is Attending Physician. kb 15:16 Lisbet Reynoso, RN is Primary Nurse. ah 15:22 Arm band placed on. sv 15:27 Triage completed. sv 15:40 Inserted saline lock: 20 gauge in right antecubital area, using aseptic technique. ah 15:55 Initial lab(s) drawn, by me, sent to lab. First set of blood cultures drawn Second set ah of blood cultures drawn by me, EKG done, by ED staff, reviewed by Maggie TATE covid swab. 15:59 CT Head Brain wo Cont In Process Unspecified. EDMS 16:25 CT completed. Patient tolerated procedure well. Patient moved back from radiology. bq 16:37 XRAY Chest (1 view) In Process Unspecified. EDMS 16:38 Patient has correct armband on for positive identification. Placed in gown. Bed in low ah position. Call light in reach. Side rails up X2. table setter on. Pulse ox on. NIBP on. 16:41 Amylase, Serum Sent. sv 17:24 Abdon Salas MD is Hospitalizing Provider. kb 19:01 No provider procedures requiring assistance completed. ah 19:06 Patient admitted, IV remains in place. ah Administered Medications: 15:27 CANCELLED (Physician Discretion): NS 0.9% (30 ml/kg) 30 ml/kg IV at bolus once; Sepsis kb Protocol 16:15 Drug: NS 0.9% 500 ml Route: IV; Rate: bolus; Site: right antecubital; ah 18:00 Follow up: Response: No adverse reaction; IV Status: Completed infusion ah Outcome: 17:24 Decision to Hospitalize by Provider. kb 19:02 Admitted to ER Hold. Please see [facility] for further documentation. 19:02 Condition: stable 19:02 Instructed on the need for admit. 11/20 08:09 Patient left the ED. bp Signatures: Dispatcher [employer] EDMaggie Castillo, PEDIATRIC LPN-C PEDIATRIC LPN-CkYudelka Perez RN RN sv Jillian Araiza mr Darshana Wright Brian, RN RN bp Calcote, Vanessa, RN RN vc Harris, Amy, RN RN
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
--- NOTE | 2019-11-20 18:05 | RAD REPORT ---
EXAM DESCRIPTION: CT - Thorax W/ Con - 11/20/2019 5:55 pm CLINICAL HISTORY: dyspnea COMPARISON: Portable chest November 19 TECHNIQUE: Dynamically enhanced 5 mm thick images of the chest were obtained during administration o f 100 mL non-ionic IV contrast. All CT scans are performed using dose optimization technique as appropriate and may include automated exposure control or mA/KV adjustment according to patient size. FINDINGS: Respiratory motion degradation is present. Minimal airspace opacities are scattered in the left lung field. Interstitial thickening is present. Minimal airspace disease in the right lung fiel d. Small left pleural effusion is present with minimal left lower lobe atelectasis. Large right pleural effusion is present with complete or near complete right lower lobe atelectasis. Right-sided pleural effusion is partially loculated. No pneumothorax. Calcified pleural plaquing changes are seen in the lateral upper right chest. No pleural based mass identified. No pneumothorax. No chest wall mass or a bnormal axillary lymphadenopathy. Several mediastinal lymph nodes are present. Retro caval-pretracheal lymph node reaches 17 mm. Additi onal clustered lymph nodes are present along the left lateral margin of the aortic arch. IMPRESSION: Large right pleural effusion, partially loculated, with right lower lobe complete or radha r complete atelectasis. Scattered airspace opacities present in the lung perkins favored to be edema rather than an acute infi ltrate. Small left pleural effusion. Upper right chest calcified pleural plaques without associated mass. No pleural based mass elsewhere on the examination.
[2019-11-20 18:25] LABS: Thyroid Stimulating Hormone 0.793 uIU/mL (0.360-3.740)
[2019-11-20] MEDS: IPRATROPIUM BROM 0.5MG/2.5ML NEB SCH (20:00)
[2019-11-20 20:22] VITALS: BMI 34.2
[2019-11-20] MEDS ORDERED: ENOXAPARIN 100 MG/ML SYR SQ SCH (21:00)
[2019-11-20 22:59] LABS: Urine Bacteria 20-50 /HPF (NONE SEEN); Urine Culture Reflex Order REFLEXED; Urine Mucus 2+ /HPF (NONE SEEN); Urine RBC <5 /HPF (NONE SEEN); Urine Urothelial Cells <5 /HPF (NONE SEEN)
[2019-11-21 00:10] LABS: Urine Blood TRACE (NEG); Urine Glucose NEGATIVE (NEG)
[2019-11-21 00:11] LABS: Urine Protein 1+ (NEG)
[2019-11-21] MEDS: IPRATROPIUM BROM 0.5MG/2.5ML NEB SCH ×4 (01:12→20:20)
[2019-11-21 05:10] LABS: Absolute Lymphocytes (CBC) 1.4 K/uL (0.7-4.9); Basophils % 0.3 % (0-1.3); Hematocrit 43.9 % (39.6-49.0); Lymphocytes % 14.5 % (15.3-44.8); MPV 11.7 fL (7.6-11.3)
[2019-11-21 05:22] LABS: Albumin 3.1 g/dL (3.4-5.0); Bilirubin Total 1.7 mg/dL (0.2-1.0); Potassium 3.8 mmol/L (3.5-5.1); Protein, Total 7.2 g/dL (6.4-8.2)
[2019-11-21] MEDS ORDERED: PNEUMOCOCCAL VACCINE 0.5 ML IMVAC ONE (08:00)
--- NOTE | 2019-11-21 08:43 | RAD REPORT ---
EXAM DESCRIPTION: RAD - Chest Pa And Lat (2 Views) - 11/21/2019 5:31 am CLINICAL HISTORY: Effusion/atelectasis Chest pain. COMPARISON: Chest Single View dated 11/20/2019; Chest Pa And Lat (2 Views) dated 09/27/2019; Chest Sing le View dated 12/25/2017; Thorax W/ Con dated 11/20/2019 FINDINGS: Mild improvement is seen in right lung base atelectasis and infiltrate since comparative s tudy. Loculated right pleural effusion again noted. The heart is moderately enlarged in size. Calcifi ed pleural plaquing noted. IMPRESSION: Mild improvement in right lung base aeration since comparative study.
[2019-11-21] MEDS ORDERED: THIAMINE 200 MG/2 ML INJ IVP SCH (09:00)
[2019-11-21 10:27] LABS: Protime INR 1.74
--- NOTE | 2019-11-21 14:26 | ECHO ---
HEIGHT: 5 ft 11 in WEIGHT: 245 lb 0 oz DATE OF STUDY: 11/21/[address]: Abdon Salas MD 2-DIMENSIONAL: YES M.MODE: YES DOPPLER: YES COLOR FLOW: YES TDS: NO PORTABLE: NO DEFINITY: NO BUBBLE STUDY: NO DIAGNOSIS: ATRIAL FIBRILLATION CARDIAC HISTORY: CATHERIZATION: NO SURGERY: NO PROSTHETIC VALVE: NO PACEMAKER: NO MEASUREMENTS (cm) DIASTOLIC (NORMALS) SYSTOLIC (NORMALS) IVSd 1.3 (0.6-1.2) LA Diam 4.4 (1.9-4.0) LVEF 45-50% LVIDd 4.0 (3.5-5.7) LVIDs 2.8 (2.0-3.5) %FS 30% LVPWd 1.3 (0.6-1.2) Ao Diam 3.3 (2.0-3.7) 2 DIMENSIONAL ASSESSMENT: RIGHT ATRIUM: NORMAL LEFT ATRIUM: ENLARGED RIGHT VENTRICLE: NORMAL LEFT VENTRICLE: MILD LEFT VENTRICULAR HYPERTROPHY TRICUSPID VALVE: MILD TRICUSPID REGURGITATION MITRAL VALVE: MILD MITRAL REGURGITATION PULMONIC VALVE: MILD PULMONIC REGURGITATION AORTIC VALVE: MILD AORTIC REGURGITATION PERICARDIAL EFFUSION: NONE AORTIC ROOT: NORMAL LEFT VENTRICULAR WALL MOTION: MILD GENERALIZED HYPOKINSIS AND DIASTOLIC DYSFUNCTION. DOPPLER/COLOR FLOW: SEE ABOVE. COMMENTS: MILDLY DEPRESSED LEFT VENTRICULAR EJECTION FRACTION 45-50% WITH GENERALIZED GLOBAL HYPOKINESIS IN THE LEFT VENTRICLE. DIASTOLIC DYSFUNCTION. SEVERE PULMONARY HYPERTENSION WITH RIGHT VENTRICULAR SYSTOLIC PRESSURE GREATER THAN 60mmHg. MILD MITRAL REGURGITATION, MILD TRICUSPID REGURGITATION, MILD PULMONIC AND AORTIC REGURGITATION. TECHNOLOGIST: KENDRICK BROUSSARD
[2019-11-21 15:06] LABS: Arterial Blood Carboxyhemoglob 1.5 % (0-1.5); Blood O2 Saturation 97.3 % (92-98.5)
--- NOTE | 2019-11-21 16:23 | P.PN ---
Subjective Date of Service: 11/21/19 Chief Complaint: SOB and AMS,atrial fibrillation no change in patient's condition is intermittently confused Review of Systems General: Weakness Respiratory: Shortness of Breath Physical Examination - Vital Signs Temperature: 97.4 F Blood Pressure: 137/81 Pulse: 80 Respirations: 21 Pulse Ox (%): 95 - Physical Exam General: Alert, Oriented x2 Neck: Supple Respiratory: Clear to auscultation bilaterally - Studies Laboratory Data (last 24 hrs) 11/20/19 15:40: Amylase 19 L, Lipase 57 L 11/20/19 15:40: Sodium 145, Potassium 4.0, BUN 24 H, Creatinine 1.29, Glucose 132 H, Magnesium 2.3, Total Bilirubin 2.1 H, AST 31, ALT 28, Alkaline Phosphatase 154 H Assessment & Plan - Problems (Diagnosis) (1) Pleural effusion Current Visit: Yes Status: Acute Plan: Patient has a significant pleural effusion on the right side although he has normal saturation will check ABGs patient does take an anticoagulants at home will verified with the daughter for his AFib he will need thoracentesis probably have to wait 3-4 days as his PT an anion is elevated at to verify his medications (2) Atrial fibrillation Current Visit: Yes Status: Acute Plan: Apparently patient has chronic AFib he has significant coronary artery disease with stent placements prior echo in my office chart do show normal left ventricular function the that was done in 2019 apparently he is on a beta- shari will also consult cardiology patient is really confused labs reviewed /BNP is elevated Qualifiers: Atrial fibrillation type: unspecified Qualified Code(s): I48.91 - Unspecified atrial fibrillation (3) Diastolic heart failure Current Visit: Yes Status: Acute Plan: I suspect patient has diastolic heart failure due to multiple medical problems I have added Lasix and spironolactone echocardiogram shows normal left ventricular function, severe pulmonary hypertension with no evince of right ventricular dilatation troponin is mildly elevated patient's blood cultures are negative patient is not hypercapnic oxygenation satisfactory will check room air pulse ox Qualifiers: Heart failure chronicity: acute on chronic Qualified Code(s): I50.33 - Acute on chronic diastolic (congestive) heart failure
[2019-11-21] MEDS ORDERED: FUROSEMIDE 40 MG/4 ML VIAL IV SCH (17:00)
--- NOTE | 2019-11-21 17:21 | P.PN ---
Subjective Date of Service: 11/21/19 Chief Complaint: SOB and AMS,atrial fibrillation Subjective: Improving, Doing well <Francisco Crump - Last Filed: 11/21/19 17:31> Date of Service: 11/21/19 <DiamanteJeffrey louis - Last Filed: 11/21/19 18:32> Review of Systems General: Unremarkable Eyes: Unremarkable ENT: Unremarkable Respiratory: Unremarkable Cardiovascular: Unremarkable Gastrointestinal: Unremarkable Musculoskeletal: Unremarkable Neurological: Unremarkable <Francisco Crump - Last Filed: 11/21/19 17:31> Physical Examination - Vital Signs Temperature: 97.4 F Blood Pressure: 137/81 Pulse: 80 Respirations: 21 Pulse Ox (%): 95 - Physical Exam General: Alert, In no apparent distress, Oriented x3 HEENT: Atraumatic, Normocephalic, PERRLA Neck: Supple, Other (Trachea midline) Respiratory: Clear to auscultation bilaterally, Normal air movement Cardiovascular: No edema, Normal pulses, Regular rate/rhythm, Normal S1 S2 Capillary refill: <2 Seconds Gastrointestinal: Normal bowel sounds, Soft and benign, Non-distended Musculoskeletal: No clubbing, No swelling, No contractures Integumentary: No rashes, No breakdown Neurological: Normal gait, Normal speech, Normal strength at 5/5 x4 extr, Normal tone <Francisco Crump - Last Filed: 11/21/19 17:31> Assessment And Plan - Plan Impression: Pleural effusion Chronic atrial fibrillation Chronic diastolic heart failure Plan: Pleural effusion: Significant pleural effusion on right side. O2 saturations remained within normal limits. Patient's INR is elevated. Patient is on anticoagulation therapy for his chronic atrial fibrillation. INR continue slightly elevated and will need to come down prior to thoracentesis. This may take another 2-3 days. Chronic atrial fibrillation: Will hold off on anticoagulation at this time due to elevated PT and INR. Patient needs to have a thoracentesis as noted above. Patient does have a history of significant coronary artery disease and stent placements. Prior echo in 2019 shows normal EF, severe pulmonary hypertension with no evidence of right ventricular dilation. Chronic diastolic heart failure: Based on echo as above patient likely has chronic diastolic heart failure. Lasix and spironolactone were added to patient's medical regimen. Will continue to monitor daily labs and response to no medications. Of note patient was noted to have mildly dilated troponin. - Problems (Diagnosis) (1) Pleural effusion Current Visit: Yes Status: Acute Plan: Patient has a significant pleural effusion on the right side although he has normal saturation will check ABGs patient does take an anticoagulants at home will verified with the daughter for his AFib he will need thoracentesis probably have to wait 3-4 days as his PT an anion is elevated at to verify his medications (2) Atrial fibrillation Current Visit: Yes Status: Acute Plan: Apparently patient has chronic AFib he has significant coronary artery disease with stent placements prior echo in my office chart do show normal left ventricular function the that was done in 2019 apparently he is on a beta- shari will also consult cardiology patient is really confused labs reviewed /BNP is elevated Qualifiers: Atrial fibrillation type: unspecified Qualified Code(s): I48.91 - Unspecified atrial fibrillation (3) Diastolic heart failure Current Visit: Yes Status: Acute Plan: I suspect patient has diastolic heart failure due to multiple medical problems I have added Lasix and spironolactone echocardiogram shows normal left ventricular function, severe pulmonary hypertension with no evince of right ventricular dilatation troponin is mildly elevated patient's blood cultures are negative patient is not hypercapnic oxygenation satisfactory will check room air pulse ox Qualifiers: Heart failure chronicity: acute on chronic Qualified Code(s): I50.33 - Acute on chronic diastolic (congestive) heart failure Discharge Plan: Home Plan to discharge in: 72 Hours - Code Status/Comfort Care Code Status Assessed: Yes <Francisco Crump - Last Filed: 11/21/19 17:31> - Plan Case discussed at length with pulmonology, cardiology and PE. Patient will have right-sided thoracentesis once INR is less than 1.5. No need for heart catheterization at this time. Continue current diuretic therapy. Will discuss further with cardiology and pulmonology tomorrow. Time Spent Managing PTS Care (In Minutes): 55 <Jeffrey Villegas - Last Filed: 11/21/19 18:32>
--- NOTE | 2019-11-21 19:06 | CON ---
Date of Consultation: 11/21/2019 Reason For Consultation: Positive troponin. History Of Present Illness: This is a 79-year-old male with history of coronary artery disease statu s post PCI multiple times by his primary salary manager in [place], dyslipidemia, hypertension, who pr esented to the emergency room feeling weak and tired with some shortness of breath as having any ches t pain. There is no orthopnea or lower extremity edema. No nausea, vomiting, or diarrhea. No abdom inal pain. No other complaints. Past Medical History: As outlined above. Medications: Refer to reconciliation sheet for detailed list. Allergies: NO KNOWN DRUG ALLERGIES. Social History: Does not smoke or drink. Does not use any drugs. Family History: No premature coronary artery disease with family. Review of Systems: All systems reviewed were negative except for mentioned in the HPI. Physical Examination: Vital Signs: Temperature is 97.4, pulse 80, breathing at 21, blood pressure 137/81, saturating 95% o n room air. General: Pleasant elderly male in no apparent distress. Head and Neck: Pupils are equal, reactive to light. Intact eye movements. No JVD. No cervical lym phadenopathy. Neck supple. Thyroid is not enlarged. Lungs: Decreased breathing sounds bilaterally and no accessory muscle use or muscle retraction. Heart: Irregularly irregular. No extra sounds. Abdomen: Soft, nontender. Bowel sounds positive. No organomegaly. No masses or hernia. No rigidi ty or rebound. Extremities: No edema, clubbing, cyanosis. Intact pulses. Skin: No rash. Neuro: Alert, awake, oriented x3. No acute focal deficits appreciated. Investigations: His creatinine is 1.35. Troponin 0.13. NT-proBNP 7400 and the chest x-ray, right p leural effusion is noted. CT scan of the chest showed large right pleural effusion. Assessment And Recommendation: 1.Atrial fibrillation, rate is controlled. The patient is on Xarelto, continue to monitor. 2.Mild troponin leak. There is no chest pain. Obtain an echocardiogram. If there is any wall paulette on abnormalities, then the patient might need a coronary angiogram. Also obtain records from the [facility] salary manager in [place] on last cardiac workup that was done. We will follow the patient with you. Thank you for this consultation. /IVELISSE Voice ID: [id number] Report ID: [id number]
[2019-11-22] MEDS: IPRATROPIUM BROM 0.5MG/2.5ML NEB SCH ×3 (00:55→13:40)
[2019-11-22 04:19] LABS: Protime INR 1.44
[2019-11-22] MEDS ORDERED: GLYCOPYRROLATE IN PRN (08:33)
[2019-11-22] MEDS ORDERED: HOME MED 1 EA UNK (Budesonide/Formoterol Fumarate [Symbicort 160-4.5 Mcg Inhaler] 1 PUFF) IH PRN (08:33)
[2019-11-22] MEDS ORDERED: FORMOTEROL FUM IN PRN (08:33)
[2019-11-22] MEDS ORDERED: METOPROLOL TAR 25 MG TAB PO SCH (09:00)
[2019-11-22] MEDS ORDERED: Enoxaparin 120 MG/0.8 ML SYR SQ SCH (09:00)
[2019-11-22] MEDS: DOCOSAHEXANOIC AC/EPA 1000 MG PO SCH (09:02)
[2019-11-22] MEDS: CYANOCOBALAMIN 1,000 MCG TAB PO SCH (09:03)
[2019-11-22] MEDS: THYROID 30 MG TAB PO SCH (09:03)
[2019-11-22] MEDS: SPIRONOLACTONE 25 MG TABLET PO SCH (09:03)
[2019-11-22] MEDS: MAGNESIUM OXIDE 400 MG TAB PO SCH (09:04)
[2019-11-22] MEDS: ASCORBIC ACID 500 MG TABLET PO SCH (09:05)
[2019-11-22] MEDS: METOPROLOL TAR 25 MG TAB PO SCH (09:05)
[2019-11-22] MEDS: THIAMINE HCL 100 MG TABLET PO SCH (09:05)
[2019-11-22] MEDS: FUROSEMIDE 40 MG TABLET PO SCH (09:06)
[2019-11-22] MEDS ORDERED: IPRATROPIUM BROM 0.5MG/2.5ML NEB PRN (16:07)
--- NOTE | 2019-11-22 16:07 | P.PN ---
Subjective Date of Service: 11/22/19 Chief Complaint: SOB and AMS,atrial fibrillation Subjective: Other (Patient stable this time.) Physical Examination - Vital Signs Temperature: 97.5 F Blood Pressure: 141/69 Pulse: 81 Respirations: 20 Pulse Ox (%): 97 - Physical Exam General: Alert, Cooperative HEENT: Atraumatic Neck: Supple Respiratory: Diminished (Diminished the right side) Cardiovascular: Irregular heart rate/rhythm (AFib rate controlled) Gastrointestinal: Normal bowel sounds Integumentary: Tenderness/swelling (Edema to the lower extremities) Neurological: Normal speech, Normal strength at 5/5 x4 extr, Normal tone, Normal affect - Studies Medications List Reviewed: Yes Assessment & Plan Discharge Plan: Home Plan to discharge in: 48 Hours Physician Review Additional Text: Impression: Shortness of breast secondary to right large pleural effusion complicated with acute on chronic diastolic CHF and COPD Chronic atrial fibrillation on chronic anti coagulation therapy BPH Hypothyroidism BPH Hypertension Chronic renal disease stage III Plan: Shortness of breast secondary to right large pleural effusion complicated with acute on chronic diastolic CHF and COPD: Continue with diuresis. Continue with COPD medication as well. Maintain oxygen above 93%. Patient will have radiology assisted thoracentesis tomorrow. Case discussed at length with pulmonology and Cardiology. Possible discharge in the next 48 hr with improvement. Patient likely will require oxygen at discharge. Chronic atrial fibrillation on chronic anti coagulation therapy: Hold anti coagulation therapy at this time. Restart after thoracentesis. BPH: Continue medication Hypothyroidism: Continue medication Hypertension: Continue medication. Will monitor and adjust appropriately. Chronic renal disease stage 3: Overall stable. Will monitor closely. Time Spent Managing Pts Care (In Minutes): 55
[2019-11-22] MEDS: TAMSULOSIN 0.4 MG SR CAP PO SCH ×2 (21:00→21:23)
--- NOTE | 2019-11-22 22:37 | PN ---
Date of Progress Note: 11/22/2019 Admitted on 11/20/[address] Villegas. He was seen by my partner, Dr. Gaytan yesterday for atrial fib rillation, shortness of breath. Today on 11/22/2019, the patient continues to be short of breath. Trevor valiente has a significant pleural effusion. His troponin is elevated, but has had a negative heart cathete rization in the past. Echocardiogram which was done yesterday showed severe pulmonary hypertension w ith a right ventricular systolic pressure more than 60. His ejection fraction is 45-50%. So he obvi ously has acute on chronic systolic congestive heart failure, pleural effusion, elevated troponin sec ondary to congestive heart failure. Previously, normal coronaries by catheterization by Dr. Thurman according to the patient. His Xarelto held. Thoracentesis is planned. We will continue to follow trevor im. Hopefully, he will go home after the thoracentesis is done and he can restart his Xarelto later and follow up with Dr. Thurman later. GRAEME/IVELISSE Voice ID: [id number] Report ID: [id number]
[2019-11-23] MEDS: THYROID 30 MG TAB PO SCH (06:27)
[2019-11-23] MEDS: ASCORBIC ACID 500 MG TABLET PO SCH (08:27)
[2019-11-23] MEDS: THIAMINE HCL 100 MG TABLET PO SCH (08:27)
[2019-11-23] MEDS: MAGNESIUM OXIDE 400 MG TAB PO SCH (08:27)
[2019-11-23] MEDS: CYANOCOBALAMIN 1,000 MCG TAB PO SCH (08:27)
[2019-11-23] MEDS: METOPROLOL TAR 25 MG TAB PO SCH (08:27)
[2019-11-23] MEDS: DOCOSAHEXANOIC AC/EPA 1000 MG PO SCH (08:27)
[2019-11-23] MEDS: FUROSEMIDE 40 MG TABLET PO SCH ×2 (08:28→21:36)
[2019-11-23] MEDS: SPIRONOLACTONE 25 MG TABLET PO SCH (08:28)
--- NOTE | 2019-11-23 10:07 | PN ---
Date of Progress Note: 11/23/2019 Mr. Peralta is here because of chronic atrial fibrillation, pleural effusion, pulmonary hypertension th at is severe, chronic renal disease stage III. Has done well from a cardiovascular standpoint. His Xarelto has been held for approximately 48 hours. There is a plan to do a thoracentesis on him today by Dr. Salas. From my standpoint, after the thoracentesis, he can go home and resume his Xarelto . He will follow up with Dr. Thurman in the near future. According to him, he has had a normal hear t catheterization in the past. GRAEME/IVELISSE Voice ID: [id number] Report ID: [id number]
--- NOTE | 2019-11-23 14:01 | P.DS ---
Admission Date: 11/20/19 Discharge Date: 11/23/19 Primary Care Provider: Dr. Salas Disposition: ROUTINE DISCHARGE Discharge Condition: GOOD Reason for Admission: SOB and AMS,atrial fibrillation Consultations: Cardiology-Dr. Perdomo Pulmonary-Dr. Salas Procedures: CT scan: FINDINGS: Respiratory motion degradation is present. Minimal airspace opacities are scattered in the left lung field. Interstitial thickening is present. Minimal airspace disease in the right lung field. Small left pleural effusion is present with minimal left lower lobe atelectasis. Large right pleural effusion is present with complete or near complete right lower lobe atelectasis. Right-sided pleural effusion is partially loculated. No pneumothorax. Calcified pleural plaquing changes are seen in the lateral upper right chest. No pleural based mass identified. No pneumothorax. No chest wall mass or abnormal axillary lymphadenopathy. Several mediastinal lymph nodes are present. Retro caval-pretracheal lymph node reaches 17 mm. Additional clustered lymph nodes are present along the left lateral margin of the aortic arch. IMPRESSION: Large right pleural effusion, partially loculated, with right lower lobe complete or near complete atelectasis. Scattered airspace opacities present in the lung perkins favored to be edema rather than an acute infiltrate. Small left pleural effusion. Upper right chest calcified pleural plaques without associated mass. No pleural based mass elsewhere on the examination. ECHO: EF 45% LEFT VENTRICULAR WALL MOTION: MILD GENERALIZED HYPOKINSIS AND DIASTOLIC DYSFUNCTION. DOPPLER/COLOR FLOW: SEE ABOVE. COMMENTS: MILDLY DEPRESSED LEFT VENTRICULAR EJECTION FRACTION 45-50% WITH GENERALIZED GLOBAL HYPOKINESIS IN THE LEFT VENTRICLE. DIASTOLIC DYSFUNCTION. SEVERE PULMONARY HYPERTENSION WITH RIGHT VENTRICULAR SYSTOLIC PRESSURE GREATER THAN 60mmHg. MILD MITRAL REGURGITATION, MILD TRICUSPID REGURGITATION, MILD PULMONIC AND AORTIC REGURGITATION. Follow up CXR: Improvement noted in right pleural effusion Medical Problem List: Shortness of breast secondary to right large partially loculated pleural effusion with right lower lobe atelectasis complicated with acute on chronic diastolic CHF and severe pulmonary hypertension COPD Chronic atrial fibrillation on chronic anti coagulation therapy BPH Hypothyroidism BPH Hypertension Chronic renal disease stage III Brief History of Present Illness: 79-year-old male with multiple medical problems presented to emergency room with increasing shortness of breath. Patient found have right large partially loculated pleural effusion. Patient admitted for further evaluation and treatment. Hospital Course: Patient presented with shortness of breath secondary to right large partially loculated pleural effusion with right lower lobe atelectasis. Patient required hospitalization. Patient seen by pulmonology and Cardiology. There was some consideration of thoracentesis but the patient was diuresed. Repeat chest x-ray showed improvement. Ejection fraction shows EF of 45% with noted severe pulmonary hypertension and diastolic dysfunction. Acute on chronic diastolic CHF also identified. Medications have been adjusted. Patient now on Aldactone. Lasix was decreased. At discharge patient will require home oxygen to maintain sats above 90 percent. At discharge patient will continue with a 1500 cc per day fluid restriction and low-salt diet. Recommend to monitor his weight daily. If his weight increases by more than 5 lb adjustment in his medication may be required. This can be further addressed by pulmonology. At discharge patient will continue with Lasix 40 mg daily and Aldactone 25 mg daily. Recommend follow up with pulmonology in 1-2 weeks to follow up this hospitalization. Recommend to recheck chest x-ray in 2-4 weeks to monitor resolution. If this is Re develops patient may require bronchoscopy in the future. This can be further addressed by pulmonology. Patient with underlying COPD. This has remained stable. At discharge he will continue with his current medications of Symbicort 2 puffs twice daily and Bevespi 1 puff twice daily. As meds above patient will continue with oxygen to maintain sats above 90%. Patient will follow up with pulmonology as directed. Patient with chronic atrial fibrillation on chronic anti coagulation therapy. At discharge patient will continue with his rate control medication metoprolol 25 mg daily. Patient reports that he has been having trouble with Eliquis recently. He thinks this may have caused the pleural effusion. He wishes to twisting frame changer to Xarelto which he was using in the past. Therefore discharge will discontinue Eliquis and change to Xarelto 20 mg daily. Recommend follow up with pulmonology as directed. Education on Xarelto with provided. Will check to see if insurance will pay for this prior to discharge. Patient with hypothyroidism. At discharge she will continue with his current medication of [place] Thyroid 90 mcg daily. Patient with BPH. At discharge she will continue with Flomax 0.4 mg daily. Patient with low magnesium. Patient may continue with magnesium supplementation daily. Patient with hypertension. Patient may continue with losartan 50 mg daily and metoprolol 25 mg daily. Recommend to maintain blood pressure less 150/80. Further adjustment can be done by his PCP. Patient with chronic renal disease stage III. This has remained stable. Recommended no use of nonsteroidal anti-inflammatories. Future medications will need to be renally dose. Recommend follow up with nephrology as an outpatient to further address and monitor. Vital Signs/Physical Exam: Temp Pulse Resp BP Pulse Ox 97.6 F 69 20 106/64 95 11/23/19 12:00 11/23/19 12:00 11/23/19 12:00 11/23/19 12:00 11/23/19 12:00 General: Alert, In no apparent distress, Oriented x3, Cooperative HEENT: Atraumatic Neck: Supple Respiratory: Other (Improved air movement to the right side) Cardiovascular: Irregular heart rate/rhythm (AFib rate controlled) Gastrointestinal: Normal bowel sounds Integumentary: No tenderness/swelling Neurological: Normal speech, Normal strength at 5/5 x4 extr, Normal tone, Normal affect Laboratory Data at Discharge: WBC 9.3 K/uL (4.3-10.9) D 11/21/19 04:50 Hgb 14.6 g/dL (13.6-17.9) 11/21/19 04:50 Hct 43.9 % (39.6-49.0) 11/21/19 04:50 Plt Count 134 K/uL (152-406) L 11/21/19 04:50 PT 16.9 SECONDS (9.5-12.5) H 11/22/19 03:45 INR 1.44 11/22/19 03:45 APTT 38.0 SECONDS (24.3-36.9) H 11/20/19 15:40 Sodium 143 mmol/L (136-145) 11/21/19 04:50 Potassium 3.8 mmol/L (3.5-5.1) 11/21/19 04:50 BUN 30 mg/dL (7-18) H 11/21/19 04:50 Creatinine 1.35 mg/dL (0.55-1.3) H 11/21/19 04:50 Glucose 124 mg/dL (74-106) H 11/21/19 04:50 Magnesium 2.3 mg/dL (1.8-2.4) 11/20/19 15:40 Total Bilirubin 1.7 mg/dL (0.2-1.0) H 11/21/19 04:50 AST 34 U/L (15-37) 11/21/19 04:50 ALT 26 U/L (12-78) 11/21/19 04:50 Alkaline Phosphatase 142 U/L (45-117) H 11/21/19 04:50 Amylase 19 U/L (25-115) L 11/20/19 15:40 Lipase 57 U/L (73-393) L 11/20/19 15:40 Home Medications: Thyroid,Pork [[place] Thyroid] 90 mcg PO DAILY 12/12/17 Albuterol Inhaler [Ventolin Inhaler*] 2 puff IH Q6H PRN 11/21/19 Ascorbic Acid [Vitamin C] 1,000 mg PO DAILY 11/21/19 Cyanocobalamin (Vitamin B-12) [B-12] 1,000 mcg PO DAILY 11/21/19 Glycopyrrolate/Formoterol Fum [Bevespi Aerosphere Inhaler] 1 puff IN BIDP PRN 11/21/19 Losartan Potassium 50 mg PO DAILY 11/21/19 Magnesium Oxide [Mag 0X*] 400 mg PO DAILY 11/21/19 Metoprolol Tartrate [Lopressor*] 25 mg PO DAILY 11/21/19 [place]-3 Fatty Acids [[place]-3] 1,000 mg PO DAILY 11/21/19 Tamsulosin [Flomax*] 0.4 mg PO BEDTIME 11/21/19 Budesonide/Formoterol Fumarate [Symbicort 160-4.5 Mcg Inhaler] 2 puff IH BIDP #1 11/23/19 Furosemide [Lasix*] 40 mg PO DAILY #30 tab 11/23/19 Rivaroxaban [Xarelto] 20 mg PO DAILY #60 tab 11/23/19 Spironolactone [Aldactone*] 25 mg PO DAILY #30 tab 11/23/19 New Medications: Spironolactone [Aldactone*] 25 mg PO DAILY #30 tab Furosemide [Lasix*] 40 mg PO DAILY #30 tab Budesonide/Formoterol Fumarate [Symbicort 160-4.5 Mcg Inhaler] 2 puff IH BIDP #1 Rivaroxaban [Xarelto] 20 mg PO DAILY #60 tab Patient Discharge Instructions: 1. Follow up with PCP in 1 week to follow up this hospitalization. 2. Patient presented with shortness of breath secondary to right large partially loculated pleural effusion with right lower lobe atelectasis. Patient required hospitalization. Patient seen by pulmonology and Cardiology. There was some consideration of thoracentesis but the patient was diuresed. Repeat chest x-ray showed improvement. Ejection fraction shows EF of 45% with noted severe pulmonary hypertension and diastolic dysfunction. Acute on chronic diastolic CHF also identified. Medications have been adjusted. Patient now on Aldactone. Lasix was decreased. At discharge patient will require home oxygen to maintain sats above 90 percent. At discharge patient will continue with a 1500 cc per day fluid restriction and low-salt diet. Recommend to monitor his weight daily. If his weight increases by more than 5 lb adjustment in his medication may be required. This can be further addressed by pulmonology. At discharge patient will continue with Lasix 40 mg daily and Aldactone 25 mg daily. Recommend follow up with pulmonology in 1-2 weeks to follow up this hospitalization. Recommend to recheck chest x-ray in 2-4 weeks to monitor resolution. If this is Re develops patient may require bronchoscopy in the future. This can be further addressed by pulmonology. 3. Patient with underlying COPD. This has remained stable. At discharge he will continue with his current medications of Symbicort 2 puffs twice daily and Bevespi 1 puff twice daily. As meds above patient will continue with oxygen to maintain sats above 90%. Patient will follow up with pulmonology as directed. 4. Patient with chronic atrial fibrillation on chronic anti coagulation therapy. At discharge patient will continue with his rate control medication metoprolol 25 mg daily. Patient reports that he has been having trouble with Eliquis recently. He thinks this may have caused the pleural effusion. He wishes to twisting frame changer to Xarelto which he was using in the past. Therefore discharge will discontinue Eliquis and change to Xarelto 20 mg daily. Recommend follow up with pulmonology as directed. Education on Xarelto with provided. Will check to see if insurance will pay for this prior to discharge. 5. Patient with hypothyroidism. At discharge she will continue with his current medication of [place] Thyroid 90 mcg daily. 6. Patient with BPH. At discharge she will continue with Flomax 0.4 mg daily. 7. Patient with low magnesium. Patient may continue with magnesium supplementation daily. 8. Patient with hypertension. Patient may continue with losartan 50 mg daily and metoprolol 25 mg daily. Recommend to maintain blood pressure less 150/80. Further adjustment can be done by his PCP. 9. Patient with chronic renal disease stage III. This has remained stable. Recommended no use of nonsteroidal anti-inflammatories. Future medications will need to be renally dose. Recommend follow up with nephrology as an outpatient to further address and monitor. Diet: AHA (1500 cc per day fluid restriction) Activity: Ad connie Time spent managing pt's care (in minutes): 55
--- NOTE | 2019-11-23 14:03 | RAD REPORT ---
EXAM DESCRIPTION: Geraldine Locke And Hazel (2 Views)11/23/2019 9:50 am CLINICAL HISTORY: Pleural effusion COMPARISON: November 21, 2019 FINDINGS: No significant change in moderate right pleural effusion with basilar atelectasis. Small left pleural effusion. The left lung appears clear of acute infiltrate. The heart is mildly enl arged
[2019-11-23] MEDS ORDERED: RIVAROXABAN 10 MG TABLET PO SCH (17:00)
[2019-11-23] MEDS: Enoxaparin 120 MG/0.8 ML SYR SQ SCH (21:37)
[2019-11-23] MEDS: TAMSULOSIN 0.4 MG SR CAP PO SCH (21:40)
[2019-11-24] MEDS: THYROID 30 MG TAB PO SCH (06:30)
[2019-11-24] MEDS: Enoxaparin 120 MG/0.8 ML SYR SQ SCH ×2 (09:26→21:00)
[2019-11-24] MEDS: THIAMINE HCL 100 MG TABLET PO SCH (09:26)
[2019-11-24] MEDS: LOSARTAN POTASSIUM 50 MG TABLET PO SCH (09:27)
[2019-11-24] MEDS: METOPROLOL TAR 25 MG TAB PO SCH (09:27)
[2019-11-24] MEDS: CYANOCOBALAMIN 1,000 MCG TAB PO SCH (09:27)
[2019-11-24] MEDS: DOCOSAHEXANOIC AC/EPA 1000 MG PO SCH (09:27)
[2019-11-24] MEDS: ASCORBIC ACID 500 MG TABLET PO SCH (09:27)
[2019-11-24] MEDS: MAGNESIUM OXIDE 400 MG TAB PO SCH (09:28)
[2019-11-24] MEDS: FUROSEMIDE 40 MG TABLET PO SCH ×2 (09:28→21:32)
[2019-11-24] MEDS: SPIRONOLACTONE 25 MG TABLET PO SCH (09:28)
--- NOTE | 2019-11-24 10:28 | RAD REPORT ---
EXAM DESCRIPTION: Geraldine Locke And Lat (2 Views)11/24/2019 6:28 am CLINICAL HISTORY: Pleural effusion COMPARISON: November 20 FINDINGS: Right pleural effusion has mildly increased in size and is moderate to large Right basilar atelectasis Mild bilateral interstitial pulmonary opacities may indicate mild interstitial pulmonary edema The heart is enlarged IMPRESSION: Mild enlargement of a moderate to large right pleural effusion Mild pulmonary edema is suspected
[2019-11-24] MEDS ORDERED: BISACODYL E.C. 5 MG TAB PO ONE (16:00)
--- NOTE | 2019-11-24 17:39 | P.PN ---
Subjective Date of Service: 11/24/19 Primary Care Provider: Dr. Salas Chief Complaint: SOB and AMS,atrial fibrillation Subjective: Doing well Physical Examination - Vital Signs Temperature: 98.8 F Blood Pressure: 113/64 Pulse: 59 Respirations: 20 Pulse Ox (%): 97 - Physical Exam General: Alert, In no apparent distress HEENT: Atraumatic Neck: Supple Respiratory: Other (Better air movement. Diminished to the right side pre) Cardiovascular: Normal pulses, Regular rate/rhythm Neurological: Normal speech, Normal strength at 5/5 x4 extr, Normal tone, Normal affect - Studies Medications List Reviewed: Yes Assessment & Plan Discharge Plan: Home Plan to discharge in: 24 Hours Physician Review Additional Text: Impression: Shortness of breast secondary to right large partially loculated pleural effusion with right lower lobe atelectasis complicated with acute on chronic diastolic CHF and severe pulmonary hypertension COPD Chronic atrial fibrillation on chronic anti coagulation therapy BPH Hypothyroidism BPH Hypertension Chronic renal disease stage III Plan: Case discussed at length with cardiology, pulmonology. Case also discuss with patient and daughter. Will proceed with thoracentesis tomorrow. Case discussed with Radiology in preparation for this. Anticipate possible discharge tomorrow after thoracentesis. Will hold Lovenox tonight. Will restart anti coagulation therapy after procedure tomorrow. Home oxygen is arranged in the event he is discharge tomorrow. Continue with his other medications for BPH, hypothyroidism, hypertension. Chronic renal disease stable. Time Spent Managing Pts Care (In Minutes): 55
[2019-11-24] MEDS: TAMSULOSIN 0.4 MG SR CAP PO SCH (21:32)
[2019-11-25 05:39] LABS: Absolute Lymphocytes (CBC) 1.6 K/uL (0.7-4.9); Basophils % 1.1 % (0-1.3); Hematocrit 39.8 % (39.6-49.0); Lymphocytes % 23.2 % (15.3-44.8); MPV 11.1 fL (7.6-11.3); RBC Red Blood Cell Count 4.25 M/uL (4.33-5.43)
[2019-11-25 05:59] LABS: Potassium 3.3 mmol/L (3.5-5.1)
[2019-11-25 06:06] LABS: Protime INR 1.21
[2019-11-25] MEDS: THYROID 30 MG TAB PO SCH (06:30)
[2019-11-25] MEDS: Enoxaparin 120 MG/0.8 ML SYR SQ SCH ×2 (09:00→21:09)
--- NOTE | 2019-11-25 10:18 | RAD REPORT ---
EXAM DESCRIPTION: US - Thoracentesis w/ US Guide - 11/25/2019 9:18 am CLINICAL HISTORY: Pleural effusion. right loculated pleural effusion COMPARISON: No comparisons FINDINGS: Preoperative diagnosis: Right pleural effusion Post operative diagnosis: Same Conscious Sedation: None. Estimated blood loss: Minimal Specimens:A small volume of fluid was sent for requested lab studies. The patient was placed in the upright recumbent position and the right posterior chest was prepped an d draped in the usual sterile fashion. 1% Lidocaine was infiltrated into the soft tissues for local anesthesia. Under sonographic guidance, a thoracentesis needle and 6 Khmer catheter was advanced in to the right pleural space. Approximately 2 liter yellow fluid was aspirated. Samples were sent to pa thology for requested analysis. The patient tolerated the procedure without immediate complication an d transferred to the floor in stable condition. IMPRESSION: Successful ultrasound-guided thoracentesis as detailed.
[2019-11-25] MEDS: DOCOSAHEXANOIC AC/EPA 1000 MG PO SCH (10:23)
[2019-11-25] MEDS: LOSARTAN POTASSIUM 50 MG TABLET PO SCH (10:23)
[2019-11-25] MEDS: THIAMINE HCL 100 MG TABLET PO SCH (10:24)
[2019-11-25] MEDS: FUROSEMIDE 40 MG TABLET PO SCH ×2 (10:24→21:10)
[2019-11-25] MEDS: METOPROLOL TAR 25 MG TAB PO SCH (10:24)
[2019-11-25] MEDS: MAGNESIUM OXIDE 400 MG TAB PO SCH (10:24)
[2019-11-25] MEDS: ASCORBIC ACID 500 MG TABLET PO SCH (10:25)
[2019-11-25] MEDS: SPIRONOLACTONE 25 MG TABLET PO SCH (10:25)
[2019-11-25] MEDS: CYANOCOBALAMIN 1,000 MCG TAB PO SCH (10:28)
--- NOTE | 2019-11-25 12:27 | RAD REPORT ---
EXAM DESCRIPTION: RAD - Chest Pa And Lat (2 Views) - 11/25/2019 12:20 pm CLINICAL HISTORY: Status post thoracentesis Chest pain. COMPARISON: Chest Pa And Lat (2 Views) dated 11/24/2019; Chest Pa And Lat (2 Views) dated 11/23/2019; Ch est Pa And Lat (2 Views) dated 11/21/2019; Chest Single View dated 11/20/2019 FINDINGS: Significant reduction in the size of the right pleural effusion is noted since comparative radiograph. No pneumothorax is seen. The lungs are mildly emphysematous. The heart is moderately enl arged. No displaced fractures.
--- NOTE | 2019-11-25 12:58 | P.PN ---
Subjective Date of Service: 12/06/19 Primary Care Provider: Dr. Salas Chief Complaint: Status post thoracentesis Patient states that he is not feeling well feeling weak and is post thoracentesis 2 L were drained Review of Systems General: Weakness Respiratory: Shortness of Breath Physical Examination - Vital Signs Temperature: 97.5 F Blood Pressure: 105/64 Pulse: 72 Respirations: 21 Pulse Ox (%): 96 - Studies Medications List Reviewed: Yes Assessment & Plan - Problems (Diagnosis) (1) Pleural effusion Status: Acute Plan: Patient is status post thoracentesis chest x-ray is now clear no evidence of pneumothorax labs all reviewed renal function has improved (2) Atrial fibrillation Status: Acute Plan: Doing well rate control resume anticoagulation tomorrow Qualifiers: Atrial fibrillation type: unspecified Qualified Code(s): I48.91 - Unspecified atrial fibrillation (3) Diastolic heart failure Status: Acute Plan: Continue with diuretics Qualifiers: Heart failure chronicity: acute on chronic Qualified Code(s): I50.33 - Acute on chronic diastolic (congestive) heart failure (4) Sleep apnea Status: Acute Plan: Patient is scheduled to have a sleep study done on Thursday I also called [facility] patient to inform them that the patient could by a some supplies if needed until he gets a new machine probably be another week Qualifiers: Sleep apnea type: unspecified type Qualified Code(s): G47.30 - Sleep apnea, unspecified Physician Review Additional Text: I
--- NOTE | 2019-11-25 13:33 | P.DS ---
Admission Date: 11/20/19 Discharge Date: 11/25/19 Primary Care Provider: Dr. Salas Disposition: ROUTINE DISCHARGE Discharge Condition: GOOD Reason for Admission: Status post thoracentesis Consultations: Pulmonary-Dr. Salas Cardiology: Dr. Perdomo Procedures: Procedures: CT scan: FINDINGS: Respiratory motion degradation is present. Minimal airspace opacities are scattered in the left lung field. Interstitial thickening is present. Minimal airspace disease in the right lung field. Small left pleural effusion is present with minimal left lower lobe atelectasis. Large right pleural effusion is present with complete or near complete right lower lobe atelectasis. Right-sided pleural effusion is partially loculated. No pneumothorax. Calcified pleural plaquing changes are seen in the lateral upper right chest. No pleural based mass identified. No pneumothorax. No chest wall mass or abnormal axillary lymphadenopathy. Several mediastinal lymph nodes are present. Retro caval-pretracheal lymph node reaches 17 mm. Additional clustered lymph nodes are present along the left lateral margin of the aortic arch. IMPRESSION: Large right pleural effusion, partially loculated, with right lower lobe complete or near complete atelectasis. Scattered airspace opacities present in the lung perkins favored to be edema rather than an acute infiltrate. Small left pleural effusion. Upper right chest calcified pleural plaques without associated mass. No pleural based mass elsewhere on the examination. ECHO: EF 45% LEFT VENTRICULAR WALL MOTION: MILD GENERALIZED HYPOKINSIS AND DIASTOLIC DYSFUNCTION. DOPPLER/COLOR FLOW: SEE ABOVE. COMMENTS: MILDLY DEPRESSED LEFT VENTRICULAR EJECTION FRACTION 45-50% WITH GENERALIZED GLOBAL HYPOKINESIS IN THE LEFT VENTRICLE. DIASTOLIC DYSFUNCTION. SEVERE PULMONARY HYPERTENSION WITH RIGHT VENTRICULAR SYSTOLIC PRESSURE GREATER THAN 60mmHg. MILD MITRAL REGURGITATION, MILD TRICUSPID REGURGITATION, MILD PULMONIC AND AORTIC REGURGITATION. Follow up CXR: Improvement noted in right pleural effusion US guided Thorancentesis: 2 L removed. Post chest x-ray shows significant improvement in right pleural effusion. No pneumothorax noted. Medical Problem List: Shortness of breast secondary to right large partially loculated pleural effusion with right lower lobe atelectasis complicated with acute on chronic diastolic CHF and severe pulmonary hypertension status post thoracentesis with removal of 2 L of fluid COPD Chronic atrial fibrillation on chronic anti coagulation therapy BPH Hypothyroidism BPH Hypertension Chronic renal disease stage III Brief History of Present Illness: 79-year-old male with multiple medical problems presented to emergency room with increasing shortness of breath. Patient found have right large partially loculated pleural effusion. Patient admitted for further evaluation and treatment. Hospital Course: Patient presented with shortness of breath secondary to right large partially loculated pleural effusion with right lower lobe atelectasis. Patient required hospitalization. Patient seen by pulmonology and Cardiology. There was some consideration of thoracentesis to the right lung. After much discussion with patient, family, cardiology and pulmonology this was pursued. Thoracentesis done. 2 L removed. Repeat x-ray shows improvement in right pleural effusion. No pneumothorax noted.. Echo performed shows Ejection fraction shows EF of 45% with noted severe pulmonary hypertension and diastolic dysfunction. Acute on chronic diastolic CHF also identified. Medications have been adjusted. Patient now on Aldactone. Lasix was decreased. At discharge patient will require home oxygen to maintain sats above 90 percent. At discharge patient will continue with a 1500 cc per day fluid restriction and low-salt diet. Recommend to monitor his weight daily. If his weight increases by more than 5 lb adjustment in his medication may be required. This can be further addressed by pulmonology. At discharge patient will continue with Lasix 40 mg daily and Aldactone 25 mg daily. Recommend follow up with pulmonology in 1 week to follow up this hospitalization and go over pathology/cultures from thoracentesis. Recommend to recheck chest x-ray in 2-4 weeks to monitor resolution. If this is Re develops patient will require CV evaluation for VATS. This can be further addressed by pulmonology. Patient with underlying COPD. This has remained stable. At discharge he will continue with his current medications of Symbicort 2 puffs twice daily and Bevespi 1 puff twice daily. As meds above patient will continue with oxygen to maintain sats above 90%. Patient will follow up with pulmonology as directed. Patient with chronic atrial fibrillation on chronic anti coagulation therapy. At discharge patient will continue with his rate control medication metoprolol 25 mg daily. Patient reports that he has been having trouble with Eliquis recently. He thinks this may have caused the pleural effusion. 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 Therefore discharge will discontinue Eliquis and change to Xarelto 20 mg daily. Recommend follow up with pulmonology as directed. Education on Xarelto with provided. Will check to see if insurance will pay for this prior to discharge. Patient with hypothyroidism. At discharge she will continue with his current medication of Dacono Thyroid 90 mcg daily. Patient with BPH. At discharge she will continue with Flomax 0.4 mg daily. Patient with low magnesium. Patient may continue with magnesium supplementation daily. Patient with hypertension. Patient may continue with losartan 50 mg daily and metoprolol 25 mg daily. Recommend to maintain blood pressure less 150/80. Further adjustment can be done by his PCP. Patient with chronic renal disease stage III. This has remained stable. Recommended no use of nonsteroidal anti-inflammatories. Future medications will need to be renally dose. Recommend follow up with nephrology as an outpatient to further address and monitor. Patient has sleep apnea. Patient requires new machine. Patient will have sleep study next week obtain it a new machine. This was addressed in detail with patient, family and pulmonology. Vital Signs/Physical Exam: Temp Pulse Resp BP Pulse Ox 97.5 F 72 21 H 105/64 96 11/25/19 12:58 11/25/19 12:58 11/25/19 12:58 11/25/19 12:58 11/25/19 12:58 General: Alert, In no apparent distress, Oriented x3, Cooperative HEENT: Atraumatic Neck: Supple Respiratory: Other (improved breathing. Less diminished. ) Cardiovascular: Normal pulses, Regular rate/rhythm Gastrointestinal: No tenderness, No masses, No rebound, No guarding Integumentary: Tenderness/swelling (1 plus edema) Neurological: Normal speech, Normal strength at 5/5 x4 extr, Normal tone Laboratory Data at Discharge: WBC 7.1 K/uL (4.3-10.9) D 11/25/19 05:21 Hgb 13.5 g/dL (13.6-17.9) L 11/25/19 05:21 Hct 39.8 % (39.6-49.0) 11/25/19 05:21 Plt Count 115 K/uL (152-406) L 11/25/19 05:21 PT 14.2 SECONDS (9.5-12.5) H 11/25/19 05:21 INR 1.21 11/25/19 05:21 APTT 35.0 SECONDS (24.3-36.9) 11/25/19 05:21 Sodium 142 mmol/L (136-145) 07/10/20 05:21 Potassium 3.3 mmol/L (3.5-5.1) L 11/25/19 05:21 BUN 23 mg/dL (7-18) H 11/25/19 05:21 Creatinine 1.08 mg/dL (0.55-1.3) 11/25/19 05:21 Glucose 108 mg/dL (74-106) H 11/25/19 05:21 Magnesium 2.0 mg/dL (1.8-2.4) 11/25/19 05:21 Total Bilirubin 1.7 mg/dL (0.2-1.0) H 11/21/19 04:50 AST 34 U/L (15-37) 11/21/19 04:50 ALT 26 U/L (12-78) 11/21/19 04:50 Alkaline Phosphatase 142 U/L (45-117) H 11/21/19 04:50 Amylase 19 U/L (25-115) L 11/20/19 15:40 Lipase 57 U/L (73-393) L 11/20/19 15:40 Home Medications: Thyroid,Pork [Dacono Thyroid] 90 mcg PO DAILY 12/12/17 Albuterol Inhaler [Ventolin Inhaler*] 2 puff IH Q6H PRN 11/21/19 Ascorbic Acid [Vitamin C] 1,000 mg PO DAILY 11/21/19 Cyanocobalamin (Vitamin B-12) [B-12] 1,000 mcg PO DAILY 11/21/19 Glycopyrrolate/Formoterol Fum [Bevespi Aerosphere Inhaler] 1 puff IN BIDP PRN 11/21/19 Losartan Potassium 50 mg PO DAILY 11/21/19 Magnesium Oxide [Mag 0X*] 400 mg PO DAILY 11/21/19 Metoprolol Tartrate [Lopressor*] 25 mg PO DAILY 11/21/19 Evarts-3 Fatty Acids [Evarts-3] 1,000 mg PO DAILY 11/21/19 Tamsulosin [Flomax*] 0.4 mg PO BEDTIME 11/21/19 Budesonide/Formoterol Fumarate [Symbicort 160-4.5 Mcg Inhaler] 2 puff IH BIDP #1 11/23/19 Furosemide [Lasix*] 40 mg PO DAILY #30 tab 11/23/19 Rivaroxaban [Xarelto] 20 mg PO DAILY #60 tab 11/23/19 Spironolactone [Aldactone*] 25 mg PO DAILY #30 tab 11/23/19 New Medications: Spironolactone [Aldactone*] 25 mg PO DAILY #30 tab Furosemide [Lasix*] 40 mg PO DAILY #30 tab Budesonide/Formoterol Fumarate [Symbicort 160-4.5 Mcg Inhaler] 2 puff IH BIDP #1 Rivaroxaban [Xarelto] 20 mg PO DAILY #60 tab Patient Discharge Instructions: 1. Follow up with PCP in 1 week to follow up this hospitalization. 2. Patient presented with shortness of breath secondary to right large partially loculated pleural effusion with right lower lobe atelectasis. Patient required hospitalization. Patient seen by pulmonology and Cardiology. There was some consideration of thoracentesis to the right lung. After much discussion with patient, family, cardiology and pulmonology this was pursued. Thoracentesis done. 2 L removed. Repeat x-ray shows improvement in right pleural effusion. No pneumothorax noted.. Echo performed shows Ejection fraction shows EF of 45% with noted severe pulmonary hypertension and diastolic dysfunction. Acute on chronic diastolic CHF also identified. Medications have been adjusted. Patient now on Aldactone. Lasix was decreased. At discharge patient will require home oxygen to maintain sats above 90 percent. At discharge patient will continue with a 1500 cc per day fluid restriction and low-salt diet. Recommend to monitor his weight daily. If his weight increases by more than 5 lb adjustment in his medication may be required. This can be further addressed by pulmonology. At discharge patient will continue with Lasix 40 mg daily and Aldactone 25 mg daily. Recommend follow up with pulmonology in 1 week to follow up this hospitalization and go over pathology/cultures from thoracentesis. Recommend to recheck chest x-ray in 2-4 weeks to monitor resolution. If this is Re develops patient will require CV evaluation for VATS. This can be further addressed by pulmonology. 3. Patient with underlying COPD. This has remained stable. At discharge he will continue with his current medications of Symbicort 2 puffs twice daily and Bevespi 1 puff twice daily. As meds above patient will continue with oxygen to maintain sats above 90%. Patient will follow up with pulmonology as directed. 4. Patient with chronic atrial fibrillation on chronic anti coagulation therapy. At discharge patient will continue with his rate control medication metoprolol 25 mg daily. Patient reports that he has been having trouble with Eliquis recently. He thinks this may have caused the pleural effusion. 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 Therefore discharge will discontinue Eliquis and change to Xarelto 20 mg daily. Recommend follow up with pulmonology as directed. Education on Xarelto with provided. Will check to see if insurance will pay for this prior to discharge. 5. Patient with hypothyroidism. At discharge she will continue with his current medication of Dacono Thyroid 90 mcg daily. 6. Patient with BPH. At discharge she will continue with Flomax 0.4 mg daily. 7. Patient with low magnesium. Patient may continue with magnesium supplementation daily. 8. Patient with hypertension. Patient may continue with losartan 50 mg daily and metoprolol 25 mg daily. Recommend to maintain blood pressure less 150/80. Further adjustment can be done by his PCP. 9. Patient with chronic renal disease stage III. This has remained stable. Recommended no use of nonsteroidal anti-inflammatories. Future medications will need to be renally dose. Recommend follow up with nephrology as an outpatient to further address and monitor. 10. Patient has sleep apnea. Patient requires new machine. Patient will have sleep study next week obtain it a new machine. This was addressed in detail with patient, family and pulmonology. Diet: AHA (1500 cc per day fluid restriction) Activity: Ad connie Time spent managing pt's care (in minutes): 55
[2019-11-25] MEDS: TAMSULOSIN 0.4 MG SR CAP PO SCH (21:10)
[2019-11-25 21:45] VITALS: O2SAT 95
[2019-12-06 06:59] VITALS: BP 105/64; TEMP 97.5
== END 2019-11-25 22:49 | disposition home or self-care (01) | DRG 291 ==
LOC: ER 15:02 → ERHOLD 17:29 → 2ND 11-21 07:55
PROVIDERS: ADMIT Internal Medicine Sleep Medicine; ATTEND Family Medicine
PROC: 8E0ZXY6 Isolation (ICD-10-PCS; 2019-11-20)
PROC: 0W993ZZ Drainage of Right Pleural Cavity, Percutaneous Approach (ICD-10-PCS; principal; 2019-11-25)
DX: I13.0 Hypertensive heart and chronic kidney disease with heart failure and stage 1 through stage 4 chronic kidney disease, or unspecified chronic kidney disease (principal); I50.33 Acute on chronic diastolic (congestive) heart failure; I48.20 Chronic atrial fibrillation, unspecified; E78.5 Hyperlipidemia, unspecified; I25.10 Atherosclerotic heart disease of native coronary artery without angina pectoris; I27.20 Pulmonary hypertension, unspecified; R06.02 Shortness of breath; Z20.828 Contact with and (suspected) exposure to other viral communicable diseases; Z88.5 Allergy status to narcotic agent; Z88.0 Allergy status to penicillin; Z79.02 Long term (current) use of antithrombotics/antiplatelets; Z79.899 Other long term (current) drug therapy; Z95.5 Presence of coronary angioplasty implant and graft; J44.9 Chronic obstructive pulmonary disease, unspecified; N18.3 Chronic kidney disease, stage 3 (moderate); Z79.01 Long term (current) use of anticoagulants; N40.0 Benign prostatic hyperplasia without lower urinary tract symptoms; E03.9 Hypothyroidism, unspecified; G47.33 Obstructive sleep apnea (adult) (pediatric)
CPT/HCPCS: 32555; 36415; 70450; 71045; 71046; 71260; 80048; 80053; 80076; 81003; 81015; 82150; 82550; 82553; 82607; 82805; 83605; 83690; 83735; 83880; 84145; 84443; 84484; 85025; 85610; 85730; 87040; 87070; 87086; 87088; 87102; 88108; 88305; 93005; 93306; 94640; 94660; 94760; 96360; 96361; 99285; J1650; J1940; J3411; J7040; Q9967